=== PATIENT | female | born 1940 | race Caucasian/White ===

== ENCOUNTER 2020-03-07 11:24 | Outpatient (REF) | payer MEDICARE, SELFPAY ==
[2020-03-07 14:37] LABS: Alanine Aminotransferase 21 U/L (0-31); Albumin Level 4.3 g/dL (3.5-5.0); Alkaline Phosphatase 89 U/L (39-117); Anion Gap 14 (12-20); Aspartate Amino Transferase 23 U/L (5-31); Bilirubin Total 0.5 mg/dL (0.0-1.0); Blood Urea Nitrogen 19 mg/dL (9-16); Calcium 9.1 mg/dL (8.4-10.2); Carbon Dioxide 28 mmol/L (22-29); Chloride 105 mmol/L (96-108); Estimated Glomerular Filt Rate > 60; Glucose Random 91 mg/dL (60-115); Potassium 3.7 mmol/l (3.3-5.1); Sodium 143 mmol/L (135-145); Total Protein 6.8 g/dL (6.5-8.0)
== END 2020-03-07 11:25 | disposition home or self-care (01) ==
LOC: HO.HMGCLDS 11:24
PROVIDERS: PCP Internal Medicine; Visit Provider Internal Medicine
DX: E03.9 Hypothyroidism, unspecified (principal); I10 Essential (primary) hypertension; N32.81 Overactive bladder; R35.0 Frequency of micturition
CPT/HCPCS: 36415; 80053; 84443

== ENCOUNTER 2020-05-03 10:40 | Outpatient (REF) | payer MEDICARE, SELFPAY ==
--- NOTE | ~2020-05-03 | XR_ITS ---
EXAMINATION: XR HIP, RIGHT CLINICAL INFORMATION: OA right hip COMPARISON: CT abdomen and pelvis 03/29/2010 TECHNIQUE: Two views of the right hip. FINDINGS: Within the right ischio there is a 1.2 x 0.7 ovoid lytic lesion with a thin sharply defined peripheral sclerotic margin. The bones are otherwise normal. No fracture. Alignment is anatomic. Hip joint space is maintained. There is mild degenerative change of the pubic symphysis. There is a partially visualized right sacral nerve stimulator. Soft tissues are otherwise unremarkable. XR/XR hip RT min 2V IMPRESSION: There is an ovoid lytic lesion within the right ischium with a thin sclerotic margin. While this lesion has an overall relatively benign appearance, the lesion is new from the prior study and patient is having right hip pain, further evaluation with cross-sectional imaging is warranted.
== END 2020-05-03 10:41 | disposition home or self-care (01) ==
LOC: HO.XRAY 10:40
PROVIDERS: PCP Internal Medicine; Visit Provider Internal Medicine
DX: M16.11 Unilateral primary osteoarthritis, right hip (principal)
CPT/HCPCS: 73502

== ENCOUNTER → 2020-07-27 10:08 | Outpatient (REF) | payer MEDICARE, SELFPAY ==
--- NOTE | 2020-07-27 10:00 | CA_ITS ---
Transthoracic Echocardiogram Patient (Last, First, Middle): Laura Vaughn J Gender: Female Date of : 1940 Age: 79 Procedure Date: 07/27/2020 Procedure Type: Transthoracic Echocardiogram Location: OP Height: 149.86 cm Weight: 74.84 kg BSA: 1.70 m2 Heart Rate: bpm BP: 170 / 92 mmHg Bag Checker: ALEX Pritchard MD: Cleo Fierro MD Rig Hand: Ant Carlson MD Symptoms: HTN WITH CHF Study Quality: Fair ECG Rhythm: Sinus Conclusions: - 1. Normal LV systolic function with impaired relaxation filling pattern 2. Normal cardiac valvular Doppler 3. Normal RV systolic pressure 4. No pericardial effusion Findings Left Ventricle Normal left ventricular size, thickness, and systolic function. The visually estimated ejection fraction is between 60-65%. Spectral Doppler is indicative of an impaired relaxation filling pattern. E/E prime ratio is between 8 and 15 consistent with indeterminate filling pressures. Right Ventricle Normal right ventricular cavity size and systolic function. Atria The left atrium is likely dilated. There is lipomatous hypertrophy of the interatrial septum. There is no evidence of interatrial shunt. The right atrium is normal in size. Aortic Valve There is mild thickening of the aortic valve. There is no aortic valve stenosis. There is no aortic valve regurgitation. Mitral Valve Normal mitral valve structure and function. There is mild mitral annular calcification. There is trace mitral valve regurgitation. There is no mitral valve stenosis. Pulmonic Valve The pulmonic valve is likely normal. Tricuspid Valve Normal tricuspid valve structure. There is mild tricuspid valve regurgitation. The right ventricular systolic pressure is 32 mmHg. Normal right atrial pressure. There is no evidence of pulmonary hypertension. Great Vessels All visible segments of the aorta are normal in size. The pulmonary artery was not well visualized. Venous The inferior vena cava is normal in size and collapses greater than 50% with inspiration. Pericardium/Pleural There is no evidence of pericardial effusion. Measurements M-Mode Liner Measurements Normals - Women/Men AOV Cusps: 1.80 1.5-2.6 cm/m2 2D Linear Measurements IVSd: 0.90 0.6-0.9/0.6-1.0 cm LVIDd: 4.52 3.9-5.3/4.2-5.9 cm LVIDd Index: 2.66 2.4-3.2/2.2-3.1 cm/m2 LVIDs: 3.19 2.0-3.6 cm LVPWd: 1.00 0.7-1.1 cm Ao Root: 2.50 2.1-3.5 cm LA Diam: 3.60 2.7-3.8/3.0-4.0 cm LAIDs Index: 2.12 1.5-2.3 cm/m2 LV Mass: 178.26 67-162/88-224 g LV Mass Index: 104.86 43-95/49-115 g/m2 LVOT Diam: 1.80 3.0+(-)1.3 cm 2D Systolic Function EF 4C: 62.00 >55% EF 2C: 70.60 >55% EF BiP: 65.40 >55% Mitral Valve MV Pk E: 0.86 MV PK A: 0.88 MV Decel Time: 255.00 E/A: 1.00 E'Lateral: 7.40 E'Medial: 5.98 E/E' Med: 14.30 E/E' Lat: 11.60 PHT: 75.00 MVA PHT: 2.93 Decel [place]: 3.36 Aortic Valve AoV Pk Quintin: 1.43 AoV Mn Quintin: 1.01 AoV VTI: 0.39 AoV Pk Grad: 8.00 Aov Mn Grad: 5.00 DG Cont.VTI: 1.64 LVOT LVOT Pk Quintin: 0.99 LVOT Mn Quintin: 0.66 LVOT VTI: 0.26 LVOT Pk Grad: 4.00 LVOT Mn Grad: 2.00 LVOT Diam: 1.80 LVOT Area: 2.54 Diastolic Function MV Pk E: 0.86 MV Pk A: 0.88 E/A: 1.00 E'Medial: 5.98 E/E' Med: 14.30 E' Laterial: 7.40 E/E' Lat: 11.60 Tricuspid Valve TR Pk Quintin: 2.70 TR Pk Grad: 29.00 RA Press: 3.00 RVSP: 32.00 Great Vessels Aorta Ao Root-2D: 2.50 2.0-3.7 cm Ao Asc: 3.10 2.1-3.4 cm Ao Arch: 2.20 Pulmonary Valve PV Pk Quintin: 0.88 Peak PV Grad: 3.00 Updated in Other Vendor System with Status of Final Atn Carlson MD electronically signed on 07/29/2020 1:09:45 PM with status of Final
== END ==
LOC: HO.CARD 10:08
PROVIDERS: PCP Internal Medicine; Visit Provider Internal Medicine
DX: I10 Essential (primary) hypertension (principal)
CPT/HCPCS: 93306

== ENCOUNTER → 2020-08-15 09:48 | Outpatient (REF) | payer MEDICARE, SELFPAY ==
--- NOTE | ~2020-08-15 | NM_ITS ---
EXAMINATION: NM BONE SCAN OF THE WHOLE BODY CLINICAL INFORMATION: Lytic lesion right ischium. COMPARISON: No previous bone scan is available for comparison. Radiographs of the right hip dated 05/03/2020 are available for comparison. TECHNIQUE: Multiple gamma scintillation camera images of the whole body were performed 2.5 hours following the intravenous administration of 26.0 mCi Tc-99m MDP. FINDINGS: In the head, no significant abnormalities are present. In the thoracic cage and upper extremities, there is minimally increased activity in the sternoclavicular joints bilaterally, the sternomanubrial articulation, and the left acromioclavicular joint and also in several foci in both hands and wrists. There is mildly increased activity in the lateral subacromial regions of both humeral heads and in the glenohumeral articulation on the left. In the spine, there is mildly increased activity bilaterally in the posterior elements at L5-S1. In the pelvis, no abnormal metabolic activity seen in the right ischium where a lytic lesion is seen on the right hip x-ray 05/03/2020. In the lower extremities, no abnormal metabolic activity seen. No other definite bony abnormalities are noted. The urinary bladder and faint visualization of both kidneys are noted. NM/NM bone scan whole body IMPRESSION: No abnormal metabolic activity is seen in the right ischium where a lytic lesion was seen on x-ray. Mild degenerative changes bilateral sternoclavicular joints, left AC joint and sternomanubrial joint. Also visualized are degenerative changes bilateral SI joints.
== END ==
LOC: HO.NUCMED 09:48
PROVIDERS: Visit Provider Internal Medicine
DX: R93.89 Abnormal findings on diagnostic imaging of other specified body structures (principal)
CPT/HCPCS: 78306; A9503

== ENCOUNTER 2020-08-23 10:59 | Outpatient (REF) | payer MEDICARE, SELFPAY ==
[2020-08-23 12:50] LABS: MANUAL DIFF FLAG NO
[2020-08-23 12:58] LABS: Basophils Percent Auto 0.3 % (0-2); Eosinophils Absolute Auto 0.1 X10*3/uL (0.0-0.4); Eosinophils Percent Auto 1.6 % (0-4); Hematocrit 38.4 % (37-47); Hemoglobin 12.7 g/dl (12.0-16.0); Imm Gran Abs Auto 0.01 X10*3/uL (0.00-0.03); Imm Gran Pct Auto 0.2 % (0.0-0.4); Lymphocytes Absolute Auto 2.4 X10*3/uL (1.2-4.9); Lymphocytes Percent Auto 42.3 % (20-40); Mean Corpuscular HGB Conc 33.1 g/dl (31.0-35.0); Mean Corpuscular Hemoglobin 31.8 pg (27.0-33.0); Mean Corpuscular Volume 96.2 fL (80-98); Mean Platelet Volume 9.5 fL (9.4-12.3); Monocytes Absolute Auto 0.5 X10*3/uL (0.1-1.2); Monocytes Percent Auto 7.9 % (2-11); Neutrophils Absolute Auto 2.7 X10*3/uL (2.0-8.3); Neutrophils Percent Auto 47.7 % (45-73); Platelet Count 231 X10*3/uL (160-400); Red Blood Count 3.99 X10*6/uL (4.20-5.50); Red Cell Distribution Width 12.4 % (11.0-16.0); White Blood Count 5.7 X10*3/uL (4.8-10.8)
[2020-08-23 13:27] LABS: Alanine Aminotransferase 15 U/L (0-31); Alkaline Phosphatase 90 U/L (39-117); Anion Gap 14 (12-20); Aspartate Amino Transferase 19 U/L (5-31); Bilirubin Total 0.5 mg/dL (0.0-1.0); Blood Urea Nitrogen 15 mg/dL (9-16); Calcium 9.3 mg/dL (8.4-10.2); Carbon Dioxide 26 mmol/L (22-29); Chloride 106 mmol/L (96-108); Cholesterol 142 mg/dL; Estimated Glomerular Filt Rate > 60; Glucose Random 110 mg/dL (60-115); HDL Cholesterol 46 mg/dL; LDL Cholesterol Calculated 60 mg/dl; Potassium 4.2 mmol/L (3.3-5.1); Sodium 142 mmol/L (135-145); Total Protein 6.5 g/dL (6.5-8.0); Triglycerides 181 mg/dL
== END 2020-08-23 11:00 | disposition home or self-care (01) ==
LOC: HO.LAB 10:59
PROVIDERS: PCP Internal Medicine; Visit Provider Internal Medicine
DX: E03.9 Hypothyroidism, unspecified (principal); E78.00 Pure hypercholesterolemia, unspecified; I10 Essential (primary) hypertension
CPT/HCPCS: 36415; 80053; 80061; 84443; 85025

== ENCOUNTER 2020-10-17 14:57 | Emergency (ER) | payer MEDICARE, SELFPAY ==
--- NOTE | ~2020-10-17 | XR_ITS ---
EXAMINATION: XR CHEST CLINICAL INFORMATION: Palpitations COMPARISON: None TECHNIQUE: AP portable view of the chest was obtained. FINDINGS: No significant abnormality is noted involving the heart, lungs, mediastinum, bony thorax or soft tissues. XR/XR chest 1V IMPRESSION: No acute disease.
[2020-10-17 15:24] VITALS: BP 180/73; BP 182/66; PULSE 76; PULSE 78; RESP 18; O2SAT 99; BMI 35.6
--- NOTE | 2020-10-17 15:25 | ECG_ITS ---
Test Reason : PALPITATION Blood Pressure : / mmHG Vent. Rate : 077 BPM Atrial Rate : 077 BPM P-R Int : 172 ms QRS Dur : 086 ms QT Int : 384 ms P-R-T Axes : 031 -08 006 degrees QTc Int : 434 ms Normal sinus rhythm Minimal voltage criteria for LVH, may be normal variant Borderline ECG When compared with ECG of 15-MAY-2009 12:41, Heart rate has increased Referred By: Sophia Liz Electronically Signed By:DEREK GAN
--- NOTE | 2020-10-17 15:27 | ED.CHESTPAIN ---
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 Reports initially starting to subside then recurred, improving at present. Reports associated generalized fatigue/weakness. Denies CP/SOB, fever, cough/recent illness, abdominal pain, nausea/vomiting, lightheadedness/dizziness, numbness, tingling Related Data Allergies Allergy/AdvReac Type Severity Reaction Status Date / Time wheat [WHEAT] Allergy Intermediate IBS Unverified 11/03/19 16:17 SYMPTOMS lactose [Lactose] Allergy Mild DIARRHEA/CR Unverified 11/03/19 16:17 AMPS milk, wheat Allergy Unknown Uncoded 07/16/18 00:00 Review of Systems Review of Systems: Constitutional: No Fever, No Chills, No Fatigue, No Malaise ENT/Mouth: No Hearing loss, No Ear Pain, No Nasal Congestion, No sore throat, No Rhinorrhea Eyes: No Eye Pain, No Swelling, No Vision Changes Cardiovascular: No Chest Pain, No SOB, No Dyspnea on Exertion, No Orthopnea, No Edema, + Palpitations Respiratory: No Cough, No Sputum, No Dyspnea Gastrointestinal: No Nausea, No Vomiting, No Diarrhea, No Abdominal pain Genitourinary: No Dysuria, No Urinary Frequency, No Hematuria, No Flank Pain Musculoskeletal: No joint pain, No Myalgias, No Joint Swelling Skin: No Skin Lesions, No rash Neuro: + Weakness, No Numbness, No Paresthesias, No Loss of Consciousness, No Dizziness, No Headache Yes all other systems are reviewed and are negative [facility] Past Medical History Attestation statement: The following information was validated with the patient. Medical History (Updated 10/17/20 @ 20:03 by ERLINDA Martinez) Hypertension Social History Social History Advance Directives: No Advance Directives Information Provided: Yes Physical Exam Vital Signs: Vital Signs: Last Vital Signs Temp 97.9 F 10/17/20 18:00 Pulse 66 10/17/20 18:00 Resp 13 10/17/20 18:00 BP 130/73 10/17/20 18:00 Pulse Ox 98 10/17/20 18:00 Body Mass Index 35.6 Const: General: cooperative and no acute distress Orientation/consciousness: patient oriented x3 Limitations: no limitations HENMT: Head: Yes normal to inspection Ears: hearing grossly normal bilaterally General nose exam: Normal external nose present Face and sinus: Yes normal facial exam Eyes: General: appearance normal, both eyes and all related structures EOM: EOMs intact bilaterally Neck: Neck: Yes normal visual inspection Resp: Effort & Inspection: normal respiratory effort Auscultation: clear to auscultation bilaterally, no rales, no rhonchi and no wheezes Cardio: Rate: regular rate Heart sounds: S1 normal heart sound present and S2 normal heart sound present GI: Inspection: Yes normal to inspection Palpation (GI): Soft to palpation, nontender, no guarding and not rigid Skin: Rashes: no rashes Wounds: no wounds Neuro: General: patient oriented x3 Gait exam (Neuro): Normal gait present Extrem: General: Yes normal to inspection, Yes no pedal edema and Yes no calf tenderness Course Course Course Narrative: -no leukocytosis, initial troponin 17.3 > will obtain 3 hour repeat. Patient does not have active chest pain XR chest 1V IMPRESSION: No acute disease. -1999--repeat troponin 32.3, no 50% rise, OK unlikely. Results discussed with patient and family at bedside. 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 Reports associated generalized fatigue/weakness. On exam VSS, in the ED, lungs CTA, abdomen soft/nontender, no pedal edema/calf tenderness. Concern for arrhythmia vs palpitation/metabolic abnormalities. Rule out ACS. Lower concern for PE as symptoms waxing/waning. Plan: EKG, labs, CXR, IVF, reassess Medical Records Data Attestation: I reviewed the patient's medical records. Lab Data Attestation: I reviewed the patient's lab results. Result diagrams: 10/17/20 15:59 10/17/20 15:59 Labs: Lab Results 09/03/0810/17/20 10/17/20 Range/Units 15:59 15:59 15:59 WBC 7.4 (4.8-10.8) X10*3/uL RBC 4.49 (4.20-5.50) X10*6/uL Hgb 14.3 (12.0-16.0) g/dl Hct 42.9 (37-47) % MCV 95.5 (80-98) fL MCH 31.8 (27.0-33.0) pg MCHC 33.3 (31.0-35.0) g/dl RDW 12.3 (11.0-16.0) % Plt Count 182 (160-400) X10*3/uL MPV 9.3 L (9.4-12.3) fL Immature Gran % (Auto) 0.1 (0.0-0.4) % Neut % (Auto) 72.6 (45-73) % Lymph % (Auto) 21.2 (20-40) % Faulkner % (Auto) 4.9 (2-11) % Eos % (Auto) 0.8 (0-4) % Baso % (Auto) 0.4 (0-2) % Lymph # (Auto) 1.6 (1.2-4.9) X10*3/uL Faulkner # (Auto) 0.4 (0.1-1.2) X10*3/uL Eos # (Auto) 0.1 (0.0-0.4) X10*3/uL Baso # (Auto) 0.0 (0.0-0.2) X10*3/uL Abs Immat Gran (auto) 0.01 (0.00-0.03) X10*3/uL Absolute Neuts (auto) 5.4 (2.0-8.3) X10*3/uL Absolute Nucleated RBC 0.000 (0.0-0.012) X10*3/uL Nucleated RBC % (auto) 0.0 (0.0-0.2) /100WBC Sodium 142 (135-145) mmol/L Potassium 3.8 (3.3-5.1) mmol/L Chloride 107 (96-108) mmol/L Carbon Dioxide 25 (22-29) mmol/L Anion Gap 14 (12-20) BUN 12 (9-16) mg/dL Creatinine 0.68 (0.5-1.4) mg/dL Estim Creat Clear Calc 60.3 Estimated GFR > 60 Random Glucose 95 (60-115) mg/dL Calcium 9.8 (8.4-10.2) mg/dL Magnesium 2.1 (1.6-2.6) mg/dL Total Bilirubin 0.8 (0.0-1.0) mg/dL Direct Bilirubin 0.3 (0.0-0.5) mg/dL AST 23 (5-31) U/L ALT 22 (0-31) U/L Alkaline Phosphatase 97 (39-117) U/L Troponin I High Sens 17.3 H* (<3.5-17.0) ng/L B-Natriuretic Peptide 90 (<100) pg/mL Total Protein 7.3 (6.5-8.0) g/dL Albumin 4.6 (3.5-5.0) g/dL TSH 3.24 (0.32-4.0) uIU/mL 10/17/20 Range/Units 19:02 WBC (4.8-10.8) X10*3/uL RBC (4.20-5.50) X10*6/uL Hgb (12.0-16.0) g/dl Hct (37-47) % MCV (80-98) fL MCH (27.0-33.0) pg MCHC (31.0-35.0) g/dl RDW (11.0-16.0) % Plt Count (160-400) X10*3/uL MPV (9.4-12.3) fL Immature Gran % (Auto) (0.0-0.4) % Neut % (Auto) (45-73) % Lymph % (Auto) (20-40) % Faulkner % (Auto) (2-11) % Eos % (Auto) (0-4) % Baso % (Auto) (0-2) % Lymph # (Auto) (1.2-4.9) X10*3/uL Faulkner # (Auto) (0.1-1.2) X10*3/uL Eos # (Auto) (0.0-0.4) X10*3/uL Baso # (Auto) (0.0-0.2) X10*3/uL Abs Immat Gran (auto) (0.00-0.03) X10*3/uL Absolute Neuts (auto) (2.0-8.3) X10*3/uL Absolute Nucleated RBC (0.0-0.012) X10*3/uL Nucleated RBC % (auto) (0.0-0.2) /100WBC Sodium (135-145) mmol/L Potassium (3.3-5.1) mmol/L Chloride (96-108) mmol/L Carbon Dioxide (22-29) mmol/L Anion Gap (12-20) BUN (9-16) mg/dL Creatinine (0.5-1.4) mg/dL Estim Creat Clear Calc Estimated GFR Random Glucose (60-115) mg/dL Calcium (8.4-10.2) mg/dL Magnesium (1.6-2.6) mg/dL Total Bilirubin (0.0-1.0) mg/dL Direct Bilirubin (0.0-0.5) mg/dL AST (5-31) U/L ALT (0-31) U/L Alkaline Phosphatase (39-117) U/L Troponin I High Sens 32.3 H* D (<3.5-17.0) ng/L B-Natriuretic Peptide (<100) pg/mL Total Protein (6.5-8.0) g/dL Albumin (3.5-5.0) g/dL TSH (0.32-4.0) uIU/mL ECG Data ECG #1: Attestation: I personally reviewed and interpreted this ECG as follows: ECG interpretation date: 10/17/20 ECG interpretation time: 15:36 Interpretation: EKG normal sinus rhythm with a rate of 77. Inverted T-waves in leads 3 and V1. No STEMI Discharge Plan Discharge Clinical Impression: Palpitations Patient Disposition: Home, Self-Care Instructions: Heart Palpitations (ED) Additional Instructions: Your blood work was reassuring today in the ED Your x-ray was unremarkable It is important for you to follow-up with your primary care doctor as well as cardiology Call to make an appointment If her symptoms persist or worsen, become unbearable, have chest pain, shortness of breath, fever or chills please return to the ED Referrals: Chance Harden MD [Physician] - 3 days Physician,Unknown [Primary Care Provider] - 2 days
[2020-10-17 15:41] VITALS: BP 202/70; PULSE 71
[2020-10-17 15:44] VITALS: BP 173/77; PULSE 78
[2020-10-17 15:46] VITALS: BP 164/86; PULSE 77
[2020-10-17 16:07] LABS: Basophils Percent Auto 0.4 % (0-2); Eosinophils Absolute Auto 0.1 X10*3/uL (0.0-0.4); Eosinophils Percent Auto 0.8 % (0-4); Hematocrit 42.9 % (37-47); Hemoglobin 14.3 g/dl (12.0-16.0); Imm Gran Abs Auto 0.01 X10*3/uL (0.00-0.03); Imm Gran Pct Auto 0.1 % (0.0-0.4); Lymphocytes Absolute Auto 1.6 X10*3/uL (1.2-4.9); Lymphocytes Percent Auto 21.2 % (20-40); MANUAL DIFF FLAG NO; Mean Corpuscular HGB Conc 33.3 g/dl (31.0-35.0); Mean Corpuscular Hemoglobin 31.8 pg (27.0-33.0); Mean Corpuscular Volume 95.5 fL (80-98); Mean Platelet Volume 9.3 fL (9.4-12.3); Monocytes Absolute Auto 0.4 X10*3/uL (0.1-1.2); Monocytes Percent Auto 4.9 % (2-11); Neutrophils Absolute Auto 5.4 X10*3/uL (2.0-8.3); Neutrophils Percent Auto 72.6 % (45-73); Platelet Count 182 X10*3/uL (160-400); Red Blood Count 4.49 X10*6/uL (4.20-5.50); Red Cell Distribution Width 12.3 % (11.0-16.0); White Blood Count 7.4 X10*3/uL (4.8-10.8)
[2020-10-17 16:22] VITALS: BP 147/68; PULSE 72; RESP 16; TEMP 36.4; O2SAT 98
[2020-10-17 16:27] LABS: Alanine Aminotransferase 22 U/L (0-31); Albumin Level 4.6 g/dL (3.5-5.0); Alkaline Phosphatase 97 U/L (39-117); Anion Gap 14 (12-20); Aspartate Amino Transferase 23 U/L (5-31); Bilirubin Direct 0.3 mg/dL (0.0-0.5); Bilirubin Total 0.8 mg/dL (0.0-1.0); Blood Urea Nitrogen 12 mg/dL (9-16); Calcium 9.8 mg/dL (8.4-10.2); Carbon Dioxide 25 mmol/L (22-29); Chloride 107 mmol/L (96-108); Creatinine Clr Calc Pharmacy 60.3; Estimated Glomerular Filt Rate > 60; Glucose Random 95 mg/dL (60-115); Magnesium 2.1 mg/dL (1.6-2.6); Potassium 3.8 mmol/L (3.3-5.1); Sodium 142 mmol/L (135-145); Total Protein 7.3 g/dL (6.5-8.0)
[2020-10-17 16:35] LABS: B Type Natriuretic Peptide 90 pg/mL (<100); Troponin-I High Sensitivity 17.3 ng/L (<3.5-17.0)
[2020-10-17] MEDS: Aspirin Enteric Coated 325 MG TABLET.DR PO (16:46)
[2020-10-17 16:47] LABS: TSH reflex Free T4 3.24 uIU/mL (0.32-4.0)
[2020-10-17 18:00] VITALS: BP 130/73; PULSE 66; RESP 13; TEMP 36.6; O2SAT 98
[2020-10-17 19:34] LABS: Troponin-I High Sensitivity 32.3 ng/L (<3.5-17.0)
--- NOTE | 2020-10-17 20:25 | PC.NURSE ---
Reviewed discharge instructions given and reviewed with pt and daughter.
== END 2020-10-17 20:28 | disposition home or self-care (01) ==
PROVIDERS: Physician Assistant; Emergency Provider Emergency Medicine Emergency Medical Services
DX: R00.2 Palpitations (principal); I10 Essential (primary) hypertension
CPT/HCPCS: 36415; 71045; 80048; 80076; 83735; 83880; 84443; 84484; 85025; 93005; 99284

== ENCOUNTER → 2020-11-06 09:53 | Outpatient (BNVA) | payer MEDICARE, SELFPAY | PROVIDERS: PCP Internal Medicine | DX: N39.41 Urge incontinence (principal) | CPT/HCPCS: 51798; 99212 ==

== ENCOUNTER → 2020-12-07 09:01 | Outpatient (BNVA) | payer MEDICARE, SELFPAY | PROVIDERS: PCP Internal Medicine | DX: N39.41 Urge incontinence (principal); E78.00 Pure hypercholesterolemia, unspecified; I10 Essential (primary) hypertension; T78.1XXA Other adverse food reactions, not elsewhere classified, initial encounter; K58.9 Irritable bowel syndrome, unspecified; Z91.011 Allergy to milk products | CPT/HCPCS: Q3014 ==

== ENCOUNTER 2020-12-21 09:18 | Outpatient (REF) | payer MEDICARE, SELFPAY ==
[2020-12-21 10:17] LABS: Alanine Aminotransferase 17 U/L (0-31); Albumin Level 4.1 g/dL (3.5-5.0); Alkaline Phosphatase 80 U/L (39-117); Anion Gap 9 (12-20); Aspartate Amino Transferase 20 U/L (5-31); Bilirubin Total 0.8 mg/dL (0.0-1.0); Blood Urea Nitrogen 15 mg/dL (9-16); Calcium 9.1 mg/dL (8.4-10.2); Carbon Dioxide 29 mmol/L (22-29); Chloride 108 mmol/L (96-108); Estimated Glomerular Filt Rate > 60; Glucose Random 92 mg/dL (60-115); Potassium 4.1 mmol/L (3.3-5.1); Sodium 142 mmol/L (135-145); Total Protein 6.5 g/dL (6.5-8.0)
== END 2020-12-21 09:19 | disposition home or self-care (01) ==
LOC: HO.LAB 09:18
PROVIDERS: PCP Internal Medicine; Visit Provider Internal Medicine
DX: E03.9 Hypothyroidism, unspecified (principal); E78.2 Mixed hyperlipidemia; I10 Essential (primary) hypertension; R60.0 Localized edema
CPT/HCPCS: 36415; 80053

== ENCOUNTER 2020-12-24 08:08 | Outpatient (REF) | payer MEDICARE, SELFPAY ==
--- NOTE | ~2020-12-24 | MM_ITS ---
EXAMINATION: MM SCREENING DIGITAL BREAST TOMOSYNTHESIS, BILATERAL CLINICAL INFORMATION: Screening. Asymptomatic. The lifetime risk of breast cancer based on the Tyrer-Cuzick Model is 2%. COMPARISON: Mammography: 11/03/2019, 11/29/2018, 03/19/2017 TECHNIQUE: Digital breast tomosynthesis is performed in both the craniocaudal and mediolateral oblique views along with computer-aided detection (CAD). Synthesized 2D images are generated from the tomosynthesis. FINDINGS: There are scattered areas of fibroglandular density (ACR BI-RADS breast composition Category b). There are no significant masses, abnormal calcifications, or other abnormalities. MM/MM tomosynthesis screening BI IMPRESSION: No mammographic evidence of malignancy. ASSESSMENT: BI-RADS 1: Negative RECOMMENDATION: Routine annual mammography screening. This patient's information was entered into a reminder system with a target due date for their next mammogram.
== END 2020-12-24 08:09 | disposition home or self-care (01) ==
LOC: HO.MAMMO 08:08
PROVIDERS: Visit Provider Internal Medicine
DX: Z12.31 Encounter for screening mammogram for malignant neoplasm of breast (principal)
CPT/HCPCS: 77063; 77067

== ENCOUNTER → 2021-01-04 09:07 | Outpatient (BNVA) | payer MEDICARE, SELFPAY | PROVIDERS: PCP Internal Medicine; Visit Provider Internal Medicine Cardiovascular Disease | DX: I10 Essential (primary) hypertension (principal); R00.2 Palpitations | CPT/HCPCS: 99202 ==

== ENCOUNTER → 2021-01-08 13:43 | Outpatient (REF) | payer MEDICARE, SELFPAY ==
--- NOTE | 2021-01-08 13:47 | HM_ITS ---
Total monitoring time 12 days and 6 hours. Underlying rhythm is sinus. Minimum heart rate as 41/Min. Maximum 102/Min. Average 56/Min. No atrial fibrillation or flutter or pauses. Rare supraventricular ectopy with minimal burden; several brief runs longest 25 beats. Occasional ventricular ectopy with burden of 0.3%. 2 morphologies and 30 couplets. No clear patient symptoms documented. MTDD
== END ==
LOC: HO.CARD 13:43
PROVIDERS: PCP Internal Medicine; Visit Provider Internal Medicine Cardiovascular Disease
DX: R00.2 Palpitations (principal)
CPT/HCPCS: 93246

== ENCOUNTER → 2021-01-14 09:32 | Outpatient (REF) | payer MEDICARE, SELFPAY ==
--- NOTE | 2021-01-14 09:37 | CA_ITS ---
Acquisition Time: 2021-01-14 10:43:37 Total Exercise Time: 00:02:39 Test Indications: HTN Medications: METOPROLOL HCTZ Protocol: KIAN Max HR: 122 BPM 87% of Pred: 140 BPM Max BP: 130/072 mmHG Max Work Load: 4.6 METS Exercise stress test with exercise 2 min 39 sec of Kian protocol and request to stop due to leg fatigue, achieving 74% MPHR, without anginal symptoms, with PACs, with normotensive response to exercise, with nondiagnostic EKG for ischemia due to suboptimal exercise time and heart rate. Test reviewed with Dr Combs. Will order a pharmacological nuclear stress test for further evaluation. Referred By: Ant Carlson Overread By: KELVIN YOUNGBLOOD
== END ==
LOC: HO.CARD 09:32
PROVIDERS: Visit Provider Internal Medicine Cardiovascular Disease
DX: I10 Essential (primary) hypertension (principal); I49.1 Atrial premature depolarization; Z79.899 Other long term (current) drug therapy
CPT/HCPCS: 93017

== ENCOUNTER → 2021-01-21 09:26 | Outpatient (REF) | payer MEDICARE, SELFPAY ==
--- NOTE | ~2021-01-21 | NM_ITS ---
Lexiscan Myocardial perfusion study Indication: Abnormal exercise stress test Technique: The patient was brought in for a Lexiscan perfusion study on 01/21/2021 and was injected 0.4 mg of Lexiscan intravenously. Within a minute of this injection 25 mCi of sestamibi was given intravenously. Images were obtained using the SPECT gamma camera interlaced with the gating device. Images were obtained in supine position. Resting perfusion study was performed on 01/23/2021. Patient was administered 25 mCi of sestamibi intravenously at rest. Images were then obtained in supine position. Total DLP 94mGy-cm. Images were processed with the software and compared side to side in short axis, horizontal long axis and vertical long axis views. Findings: Raw acquisition was reviewed. The stress perfusion study showed slightly diminished tracer uptake in the distal part of lateral wall. There is also slightly diminished tracer uptake in the basal aspect of inferior septum and inferolateral wall. Adjacent inferior wall, that seems to be some bowel uptake. With CT attenuation correction overall, there is improvement in the basal part of inferior septum and inferolateral wall as well as distal part of lateral wall. The gated study shows normal LV systolic function with calculated LVEF of 73%. LV cavity is normal in size. The gated study shows normal wall thickening and contraction of segments. Resting study shows slightly diminished tracer uptake in the distal part of lateral wall but otherwise unremarkable CT attenuation correction without any major changes. Gating at rest reveals normal wall motion with ejection fraction at 70%. The findings are consistent with no definite reversible or fixed perfusion abnormality. NM/NM rosaura perf SPECT rest & str Impression: 1. Myocardial perfusion imaging study shows likely normal myocardial perfusion. 2. Gated LVEF is 73% during stress and 70% during rest. 3. Transient ischemic dilatation not present. EKG component of the test reported separately.
--- NOTE | 2021-01-21 09:31 | CA_ITS ---
Acquisition Time: 2021-01-21 09:36:24 Total Exercise Time: 00:02:00 Test Indications: SOB Medications: SEE CHART Protocol: LEXISCAN Max HR: 098 BPM 70% of Pred: 140 BPM Max BP: 142/062 mmHG Max Work Load: 1.0 METS Pharmacological stress test with Lexiscan injection, while sitting and kicking her legs, without anginal symptoms, without arrythmia, with normotensive response to injection, with nondiagnostic EKG for ischemia. Nuclear images pending. Test reviewed with Dr Harden. Referred By: Almaz Preciado Overread By: ALMAZ PRECIADO
== END ==
LOC: HO.CARD 09:26
PROVIDERS: Visit Provider Nurse Practitioner Family
DX: I10 Essential (primary) hypertension (principal); I49.1 Atrial premature depolarization; R06.02 Shortness of breath; R94.39 Abnormal result of other cardiovascular function study
CPT/HCPCS: 78452; 93017; A9500; J0280; J2785

== ENCOUNTER → 2021-03-08 09:23 | Outpatient (BNVA) | payer MEDICARE, SELFPAY | PROVIDERS: PCP Internal Medicine | DX: N39.41 Urge incontinence (principal) | CPT/HCPCS: 99212 ==

== ENCOUNTER 2021-03-20 08:00 | Outpatient (REF) | payer MEDICARE, SELFPAY ==
[2021-03-20 09:03] LABS: Alanine Aminotransferase 26 U/L (0-31); Alkaline Phosphatase 89 U/L (39-117); Anion Gap 10 (12-20); Aspartate Amino Transferase 24 U/L (5-31); Bilirubin Total 0.6 mg/dL (0.0-1.0); Blood Urea Nitrogen 19 mg/dL (9-16); Calcium 9.4 mg/dL (8.4-10.2); Carbon Dioxide 28 mmol/L (22-29); Chloride 107 mmol/L (96-108); Estimated Glomerular Filt Rate > 60; Glucose Random 101 mg/dL (60-115); Potassium 4.3 mmol/L (3.3-5.1); Sodium 141 mmol/L (135-145); Total Protein 6.5 g/dL (6.5-8.0)
[2021-03-20 09:24] LABS: Thyroid Stimulating Hormone 3.39 uIU/mL (0.32-4.0)
[2021-03-20 09:26] LABS: Vitamin B12 452 pg/mL (200-900)
== END 2021-03-20 08:01 | disposition home or self-care (01) ==
LOC: HO.LAB 08:00
PROVIDERS: PCP Internal Medicine; Visit Provider Internal Medicine
DX: I10 Essential (primary) hypertension (principal); E03.8 Other specified hypothyroidism; F04 Amnestic disorder due to known physiological condition; R00.2 Palpitations
CPT/HCPCS: 36415; 80053; 82607; 84443

== ENCOUNTER 2021-04-29 09:50 | Day surgery (SDC) | payer MEDICARE, SELFPAY ==
[2021-04-23 15:55] VITALS: BMI 31.7
--- NOTE | 2021-04-26 08:27 | HO.ANESPROP2 ---
HPI - Anesthesia Eval Consult details Narrative: 80yo F for Colonoscopy [facility] Active Problems Active Problems: All Active Problems (Updated 04/23/21 @ 15:55 by Dawna Arias RN) PAC (premature atrial contraction) (Acute) Hypertension (Acute) Urgency incontinence (Acute) Past Medical History Medical History (Updated 04/23/21 @ 15:55 by Dawna Arias RN) Dysphagia Esophageal stricture GERD (gastroesophageal reflux disease) High cholesterol History of palpitations Hypertension IBS (irritable bowel syndrome) Urgency incontinence Urinary incontinence Family History Family History Father CAD (coronary artery disease) Mother CAD (coronary artery disease) Surgical History Surgical History (Updated 04/23/21 @ 15:06 by Dawna Arias RN) History of esophagogastroduodenoscopy (EGD) History of salpingo-oophorectomy History of surgery Hx of cerebral aneurysm repair Hx of colonoscopy Hx of hysterectomy Social History Social History Are you a primary health care attorney to a significant other at home: No Do you presently have visiting nurse or other home services: No Alcohol intake: never Patient Tobacco Use Status: Never used Tobacco Use of substances other than those prescribed or required for medical reasons: No Have you been hit, kicked, punched, or otherwise hurt by someone within the past year? If so, by whom?: No Are you DNR?: No Advance Directives: No Advance Directives Information Provided: No Advance Directives on File: No Recently lost weight without trying: No Eating poorly because of decreased appetite: No Nutrition Risks: No Nutritional Risk Patient : No Meds Allergies Allergy/AdvReac Type Severity Reaction Status Date / Time wheat [WHEAT] Allergy Intermediate IBS Verified 04/29/21 10:25 SYMPTOMS lactose [Lactose] Allergy Mild DIARRHEA/CR Verified 04/29/21 10:25 AMPS Home Medications Medication Instructions Recorded Confirmed Last Taken Type famciclovir 250 mg tablet 250 mg PO BID 12/07/20 04/23/21 Unknown History levothyroxine 50 mcg capsule 50 mcg PO DAILY 12/07/20 04/23/21 04/29/21 09:00 History rosuvastatin 20 mg tablet 20 mg PO DAILY 12/07/20 04/23/21 Unknown History losartan 100 1 tab PO DAILY 01/04/21 04/23/21 Unknown History mg-hydrochlorothiazide 25 mg tablet metoprolol succinate 100 mg 100 mg PO DAILY 01/04/21 04/23/21 04/29/21 09:00 History tablet,extended release 24 hr omeprazole 20 mg capsule,delayed 40 mg PO DAILY cap 01/04/21 04/23/21 04/29/21 09:00 History release folic acid 1 mg tablet 1 mg PO DAILY 03/08/21 04/23/21 Unknown History methotrexate sodium 2.5 mg tablet 7.5 mg PO QWEEK 03/08/21 04/23/21 Unknown History prednisolone acetate 1 % eye 0 drp OPHTHALMIC (EYE) 03/08/21 Unknown History drops,suspension Exam Exam Date and Time: April 26, 2021 0827 Height,Weight and Vital Signs: Height 4 ft 11.5 in Weight 72.575 kg Pertinent Lab Results Pertinent Lab Results: Laboratory Tests 10/17/20 03/20/21 15:59 08:15 WBC 7.4 Hgb 14.3 Hct 42.9 Plt Count 182 Sodium 141 Potassium 4.3 Chloride 107 Carbon Dioxide 28 BUN 19 H Creatinine 0.73 Narrative Narrative: NM rosaura perf SPECT rest & str Impression: ? 1.? Myocardial perfusion imaging study shows likely normal myocardial perfusion. 2.? Gated LVEF is 73% during stress and 70% during rest. 3. Transient ischemic dilatation not present. ? EKG component of the test reported separately. (Nondiagnostic) ECHO 07/2020 Conclusions: - 1. Normal LV systolic function with impaired relaxation filling pattern? 2. Normal cardiac valvular Doppler ? 3. Normal RV systolic pressure ? 4. No pericardial effusion ? ? EKG 10/2020 Vent. Rate : 077 BPM ? ? Atrial Rate : 077 BPM ?? P-R Int : 172 ms? QRS Dur : 086 ms ? ? QT Int : 384 ms ? ? ? P-R-T Axes : 031 -08 006 degrees ?? QTc Int : 434 ms ? Normal sinus rhythm Minimal voltage criteria for LVH, may be normal variant Borderline ECG When compared with ECG of 15-MAY-2009 12:41, Heart rate has increased Assessment and Plan Assessment Anesthesia Assessment: Chart Reviewed
[2021-04-29 10:55] VITALS: BP 131/58; PULSE 55; RESP 16; TEMP 36.7; O2SAT 98
[2021-04-29] MEDS: Sodium Phosphate,Mono-Dibasic 133 ML ENEMA PR (10:57)
[2021-04-29] MEDS: Lactated Ringers 1,000 ML 100 ML IVCONT (11:21)
[2021-04-29 12:25] VITALS: BP 113/52; PULSE 60; RESP 14; TEMP 36.3; O2SAT 97
--- NOTE | 2021-04-29 12:34 | PM.OP ---
Brief Operative Note Date of Service: 04/29/21 Pre-op diagnosis: Change in bowels Post-op diagnosis: other (R/O microscopic colitis, Diverticulosis) Procedure: Colonoscopy to the cecum with biopsies Surgeon: José Miguel Upton Anesthesia: MAC Was an Advertising Operations Coordinator used for this Procedure?: No Estimated blood loss (mL): 2.0 Pathology: other (A. Ascending colon B. Descenidng colon) Condition: stable Disposition: PACU
[2021-04-29 12:40] VITALS: BP 112/58; PULSE 54; RESP 16; TEMP 36.3; O2SAT 99
--- NOTE | 2021-04-29 23:47 | OP_ITS ---
SURGEON: José Miguel Upton MD INDICATIONS: The patient presents for evaluation of change in bowel habits with associated diarrhea. Full consent was obtained from her for this, including risks of bleeding and perforation. PREOPERATIVE DIAGNOSIS: Change in bowel habits and diarrhea. POSTOPERATIVE DIAGNOSIS: PROCEDURE PERFORMED: Colonoscopy to the cecum with biopsies. ESTIMATED BLOOD LOSS: COMPLICATIONS: ANESTHESIA: Preop medication used, monitored anesthesia care. ASSISTANTS: SPECIMENS: POSTOPERATIVE DIAGNOSES: Change in bowel habits and diarrhea, rule out microscopic colitis, diverticulosis, internal hemorrhoids. DESCRIPTION OF PROCEDURE: The patient was placed in the left lateral decubitus position. The digital rectal exam revealed some slightly diminished sphincter tone, but otherwise no abnormalities. The Olympus video pediatric colonoscope was entered into the rectum and advanced easily to the cecum. Once in the cecum, I did identify normal-appearing cecal pouch with appendiceal orifice and a normal-appearing ileocecal valve. The entire cecum and ileocecal valve appeared normal. There was transillumination of light deep in the right lower quadrant. The scope was slowly withdrawn assessing all mucosal surfaces carefully. Preparation was excellent. I did not visualize any sign of polyps, colitis, nor angiodysplasia. There was a mild amount of sigmoid diverticulosis. Random biopsies were obtained in the ascending and descending colon. In the rectum, scope was retroflexed visualizing some internal hemorrhoids, but no other pathology. The rectal mucosa appeared normal. The scope was straightened and withdrawn from the patient. She tolerated the procedure well and was returned to the recovery area in stable condition. IMPRESSION: 1. Rule out microscopic colitis. 2. Diverticulosis. 3. Internal hemorrhoids. PLAN: The results of biopsy will be checked. I did instruct her to use some Imodium on a p.r.n. basis for the intermittent diarrhea to hopefully control that and any occasional incontinence that she has. She has been using some dicyclomine p.r.n. for abdominal cramping as well. I did advise her to continue that. If things are stable, I advised her to see me on a p.r.n. basis, but I did advise her to certainly let me know if things were too worsen. This has been discussed with her family. MD CHENG Mead/MOLLYL / [id number]
== END 2021-04-29 13:10 | disposition home or self-care (01) ==
PROVIDERS: PCP Internal Medicine; Visit Provider Internal Medicine
PROC: 0DJD8ZZ Inspection of Lower Intestinal Tract, Via Natural or Artificial Opening Endoscopic (ICD-10-PCS; CPT 45378; principal; 2021-04-29 11:10)
DX: R19.4 Change in bowel habit (principal); K58.0 Irritable bowel syndrome with diarrhea; R15.1 Fecal smearing; K57.30 Diverticulosis of large intestine without perforation or abscess without bleeding; K64.8 Other hemorrhoids; E78.00 Pure hypercholesterolemia, unspecified; I10 Essential (primary) hypertension; Z79.899 Other long term (current) drug therapy
CPT/HCPCS: 45380; 88305

== ENCOUNTER 2021-09-18 15:16 | Outpatient (REF) | payer MEDICARE, SELFPAY ==
[2021-09-18 17:02] LABS: Alanine Aminotransferase 22 U/L (0-31); Albumin Level 4.2 g/dL (3.5-5.0); Alkaline Phosphatase 76 U/L (39-117); Anion Gap 14 (12-20); Aspartate Amino Transferase 25 U/L (5-31); Bilirubin Total 0.8 mg/dL (0.0-1.0); Blood Urea Nitrogen 17 mg/dL (9-16); Calcium 9.5 mg/dL (8.4-10.2); Carbon Dioxide 28 mmol/L (22-29); Chloride 105 mmol/L (96-108); Cholesterol 147 mg/dL; Estimated Glomerular Filt Rate > 60; Glucose Random 103 mg/dL (60-115); HDL Cholesterol 42 mg/dL; LDL Cholesterol Calculated 85 mg/dl; Potassium 4.2 mmol/L (3.3-5.1); Sodium 143 mmol/L (135-145); Total Protein 6.5 g/dL (6.5-8.0); Triglycerides 104 mg/dL
[2021-09-18 17:23] LABS: Thyroid Stimulating Hormone 2.08 uIU/mL (0.32-4.0)
== END 2021-09-18 15:17 | disposition home or self-care (01) ==
LOC: HO.HMGCLDS 15:16
PROVIDERS: PCP Internal Medicine; Visit Provider Internal Medicine
DX: E03.8 Other specified hypothyroidism (principal); E78.00 Pure hypercholesterolemia, unspecified; I10 Essential (primary) hypertension
CPT/HCPCS: 36415; 80053; 80061; 84443

== ENCOUNTER 2022-01-21 11:30 | Outpatient (REF) | payer MEDICARE, SELFPAY ==
--- NOTE | ~2022-01-21 | MM_ITS ---
EXAMINATION: MM SCREENING DIGITAL BREAST TOMOSYNTHESIS, BILATERAL CLINICAL INFORMATION: Screening. Asymptomatic. The lifetime risk of breast cancer based on the Tyrer-Cuzick Model is 1%. COMPARISON: Mammography: 12/24/2020, 11/03/2019, 04/01/2018 TECHNIQUE: Digital breast tomosynthesis is performed in both the craniocaudal and mediolateral oblique views along with computer-aided detection (CAD). Synthesized 2D images are generated from the tomosynthesis. FINDINGS: There are scattered areas of fibroglandular density (ACR BI-RADS breast composition Category b). There are no significant masses, abnormal calcifications, or other abnormalities. Parenchymal pattern is similar to prior studies. There is no developing density or architectural abnormality. The axilla and skin contours are unremarkable. No significant changes. MM/MM tomosynthesis screening BI IMPRESSION: No mammographic evidence of malignancy. ASSESSMENT: BI-RADS 1: Negative RECOMMENDATION: Routine annual mammography screening. This patient's information was entered into a reminder system with a target due date for their next mammogram.
== END 2022-01-21 11:31 | disposition home or self-care (01) ==
LOC: HO.MAMMO 11:30
PROVIDERS: PCP Internal Medicine; Visit Provider Internal Medicine
DX: Z12.31 Encounter for screening mammogram for malignant neoplasm of breast (principal)
CPT/HCPCS: 77063; 77067

== ENCOUNTER 2022-03-18 07:47 | Outpatient (REF) | payer MEDICARE, SELFPAY ==
[2022-03-18 11:39] LABS: MANUAL DIFF FLAG NO
[2022-03-18 11:58] LABS: Basophils Percent Auto 0.8 % (0-2); Eosinophils Absolute Auto 0.1 X10*3/uL (0.0-0.4); Eosinophils Percent Auto 2.3 % (0-4); Hematocrit 38.5 % (37.0-47.0); Hemoglobin 12.7 g/dl (12.0-16.0); Imm Gran Abs Auto 0.01 X10*3/uL (0.00-0.03); Imm Gran Pct Auto 0.2 % (0.0-0.4); Lymphocytes Absolute Auto 1.9 X10*3/uL (1.2-4.9); Lymphocytes Percent Auto 38.1 % (20-40); Mean Corpuscular Hemoglobin 33.2 pg (27.0-33.0); Mean Corpuscular Volume 100.8 fL (80.0-98.0); Mean Platelet Volume 9.4 fL (9.4-12.3); Monocytes Absolute Auto 0.4 X10*3/uL (0.1-1.2); Neutrophils Absolute Auto 2.5 x10*3/uL (2.0-8.3); Neutrophils Percent Auto 50.6 % (45-73); Platelet Count 194 X10*3/uL (160-400); Red Blood Count 3.82 X10*6/uL (4.20-5.50); Red Cell Distribution Width 13.2 % (11.0-16.0); White Blood Count 4.9 X10*3/uL (4.8-10.8)
[2022-03-18 12:27] LABS: Thyroid Stimulating Hormone 2.98 uIU/mL (0.32-4.0)
[2022-03-18 12:30] LABS: Alanine Aminotransferase 19 U/L (0-31); Albumin Level 3.8 g/dL (3.5-5.0); Alkaline Phosphatase 90 U/L (39-117); Anion Gap 14 (12-20); Aspartate Amino Transferase 26 U/L (5-31); Bilirubin Total 0.6 mg/dL (0.0-1.0); Blood Urea Nitrogen 23 mg/dL (9-16); Calcium 9.2 mg/dL (8.4-10.2); Carbon Dioxide 26 mmol/L (22-29); Chloride 108 mmol/L (96-108); Estimated Glomerular Filt Rate > 60; Glucose Random 91 mg/dL (60-115); Potassium 4.3 mmol/L (3.3-5.1); Sodium 144 mmol/L (135-145); Total Protein 6.3 g/dL (6.5-8.0)
== END 2022-03-18 07:48 | disposition home or self-care (01) ==
LOC: HO.HMGCLDS 07:47
PROVIDERS: PCP Internal Medicine; Visit Provider Internal Medicine
DX: E03.8 Other specified hypothyroidism (principal); E78.00 Pure hypercholesterolemia, unspecified; I10 Essential (primary) hypertension; N32.81 Overactive bladder
CPT/HCPCS: 36415; 80053; 84443; 85025

== ENCOUNTER 2022-03-26 09:00 | Outpatient (RCR) | payer MEDICARE, SELFPAY | END 2022-04-30 08:17 | disposition home or self-care (01) | LOC: HO.PTCHIC 09:00 | PROVIDERS: PCP Internal Medicine; Visit Provider Internal Medicine | DX: M70.62 Trochanteric bursitis, left hip (principal); M54.16 Radiculopathy, lumbar region | CPT/HCPCS: 97110; 97140; 97161; 97162 ==

== ENCOUNTER 2022-03-29 14:34 | Observation (INO) | payer MEDICARE, SELFPAY ==
[2022-03-29] VITALS (9 sets, daily range): BP systolic 129–196; BP diastolic 64–90; PULSE 69–85; RESP 17–20; TEMP 36.1–36.6; O2SAT 96–98; BMI 30.4
--- NOTE | ~2022-03-29 | CT_ITS ---
EXAMINATION: CT HEAD WITHOUT CONTRAST CLINICAL INFORMATION: 81-year-old with dizziness COMPARISON: None TECHNIQUE: Contiguous axial imaging was performed from the skull base to vertex without intravenous administration of contrast. This CT examination was performed using dose optimization techniques as appropriate, variously including the following: *Automated exposure control *Adjustment of mA and/or kV according to patient size (this includes techniques or standardized protocols for targeted exams where dose is matched to indication/reason for exam; i.e. extremities or head) *Use of iterative reconstruction technique DLP: 772 mGy-cm FINDINGS: There are incidental findings of postsurgical clip in the left side [place] most likely clipped aneurysm. Stent graft is shadowing artifact from the clip. BRAIN PARENCHYMA: No acute hemorrhage. No mass effect or herniation. Rai-white differentiation is maintained. White matter is within normal limits for age. VENTRICLES/EXTRA-AXIAL SPACES: No hydrocephalus or extra-axial fluid collections. EXTRACRANIAL STRUCTURES: Normal bones and soft tissues. Visualized paranasal sinuses and mastoids are clear. CT/CT head/brain wo IV con IMPRESSION: No acute intracranial pathology.
--- NOTE | ~2022-03-29 | XR_ITS ---
EXAMINATION: CHEST 2 VIEWS CLINICAL INFORMATION: dizziness . COMPARISON: 10/17/2020. TECHNIQUE: PA and lateral views of the chest obtained. FINDINGS: The lungs are well expanded. No focal infiltrate, effusion, edema, or pneumothorax. Cardiac and mediastinal silhouettes are within normal limits for technique. No acute bony abnormality seen XR/XR chest 2V IMPRESSION: No evidence of acute disease compared to 10/17/2020
--- NOTE | 2022-03-29 14:37 | ECG_ITS ---
Test Reason : DIZZINESS Blood Pressure : / mmHG Vent. Rate : 074 BPM Atrial Rate : 074 BPM P-R Int : 158 ms QRS Dur : 078 ms QT Int : 370 ms P-R-T Axes : 040 -06 025 degrees QTc Int : 410 ms Normal sinus rhythm Normal ECG When compared with ECG of 17-OCT-2020 15:36, No significant change was found Referred By: Generic ED Physician Electronically Signed By:DWIGHT ZHANG MD
--- NOTE | 2022-03-29 14:52 | ED_ITS ---
HPI - Dizziness General Chief Complaint: Dizziness <ERLINDA Jean-Baptiste - Last Filed: 03/29/22 15:05> Stated Complaint: dizzy sent from urgent care <ERLINDA Jean-Baptiste Last Filed: 03/29/22 15:05> Time Seen by Provider: 03/29/22 18:16 <ERLINDA Jean-Baptiste - Last Filed: 03/29/22 15:05> Source: patient <ERLINDA Anaya - Last Filed: 03/30/22 16:32> Mode of arrival: ambulatory <ERLINDA Anaya Last Filed: 03/30/22 16:32> Limitations: no limitations <ERLINDA Anaya Last Filed: 03/30/22 16:32> History of Present Illness HPI Narrative: 81-year-old female with history of hypertension and also vertigo in the past presents to the ED for dizziness described as the room spinning since Thursday. Patient states when she turned her head to the right she feels dizzy. Patient denies any chest pain, shortness of breath, or falling to the ground/hitting head. Patient denies any facial droop, change loss of vision, or paralysis of extremities. Patient states ambulating/holding the wall since Thursday. Patient denies fall <ERLINDA Anaya Last Filed: 03/30/22 16:32> Related Data Home Medications: Home Medications Medication Instructions Recorded Confirmed levothyroxine 50 mcg capsule 50 mcg PO DAILY@0600 12/07/20 03/30/22 rosuvastatin 20 mg tablet 20 mg PO BEDTIME 12/07/20 03/30/22 losartan 100 1 tab PO DAILY 01/04/21 03/30/22 mg-hydrochlorothiazide 25 mg tablet metoprolol succinate 100 mg 100 mg PO DAILY 01/04/21 03/30/22 tablet,extended release 24 hr omeprazole 20 mg capsule,delayed 40 mg PO BID@0630,1630 01/04/21 03/30/22 release folic acid 1 mg tablet 1 mg PO SUMOTUTHFRSA@0900 03/08/21 03/30/22 methotrexate sodium 2.5 mg tablet 10 mg PO WE 03/08/21 03/30/22 acyclovir 800 mg tablet 1 tab PO DAILY 03/30/22 03/30/22 ganciclovir 0.15 % eye gel (Zirgan) 1 drp ophthalmic (eye) BEDTIME 03/30/22 03/30/22 meloxicam 7.5 mg tablet 1 tab PO DAILY 03/30/22 03/30/22 mirabegron 50 mg tablet,extended 1 tab PO DAILY 03/30/22 03/30/22 release 24 hr (Myrbetriq) <ERLINDA Jean-Baptiste - Last Filed: 03/29/22 15:05> Allergies/Adverse Reactions: Allergies Allergy/AdvReac Type Severity Reaction Status Date / Time wheat [WHEAT] Allergy Intermediate IBS Verified 04/29/21 10:25 SYMPTOMS lactose [Lactose] Allergy Mild DIARRHEA/CR Verified 04/29/21 10:25 AMPS <ERLINDA Jean-Baptiste - Last Filed: 03/29/22 15:05> Review of Systems Review of Systems: Dizziness <ERLINDA Anaya - Last Filed: 03/30/22 16:32> Yes all other systems are reviewed and are negative <ERLINDA Anaya - Last Filed: 03/30/22 16:32> [facility] Past Medical History Medical History: Medical History Dysphagia Esophageal stricture GERD (gastroesophageal reflux disease) High cholesterol History of palpitations Hypertension IBS (irritable bowel syndrome) Urgency incontinence Urinary incontinence <ERLINDA Jean-Baptiste - Last Filed: 03/29/22 15:05> Surgical History: Surgical History History of esophagogastroduodenoscopy (EGD) History of salpingo-oophorectomy History of surgery Hx of cerebral aneurysm repair Hx of colonoscopy Hx of hysterectomy <ERLINDA Jean-Baptiste - Last Filed: 03/29/22 15:05> Family History Family History: Family History Father CAD (coronary artery disease) Mother CAD (coronary artery disease) <ERLINDA Jean-Baptiste - Last Filed: 03/29/22 15:05> Social History Social History: Social History Are you a primary landcare officer to a significant other at home: No Do you presently have visiting nurse or other home services: No Alcohol intake: never Patient Tobacco Use Status: Never used Tobacco Advance Directives: No Advance Directives Information Provided: No Nutrition Risks: No Nutritional Risk service: No Current occupational status: retired <ERLINDA Jean-Baptiste - Last Filed: 03/29/22 15:05> Physical Exam Vital Signs: Vital Signs: Last Vital Signs Temp 97.6 F 03/30/22 16:30 Pulse 60 03/30/22 16:30 Resp 19 03/30/22 16:30 BP 126/51 L 03/30/22 16:30 Pulse Ox 94 03/30/22 16:30 O2 Del Method 03/30/22 16:30 BMI result Body Mass Index 30.4 <ERLINDA Jean-Baptiste - Last Filed: 03/29/22 15:05> Vital Signs: Last Vital Signs Temp 97.6 F 03/30/22 16:30 Pulse 60 03/30/22 16:30 Resp 19 03/30/22 16:30 BP 126/51 L 03/30/22 16:30 Pulse Ox 94 03/30/22 16:30 O2 Del Method 03/30/22 16:30 BMI result Body Mass Index 30.4 <ERLINDA Anaya - Last Filed: 03/30/22 16:32> Const: General: cooperative, healthy appearing, comfortable, no acute distress, well developed, alert, awake and Physically active <ERLINDA Anaya - Last Filed: 03/30/22 16:32> Orientation/consciousness: oriented to person, oriented to place, oriented to time and patient oriented x3 <ERLINDA Anaya - Last Filed: 03/30/22 16:32> HEENT: Head: Yes normal to inspection, Yes No palpable skull fracture present, Yes normocephalic, Yes atraumatic and No abrasion <ERLINDA Anaya Last Filed: 03/30/22 16:32> Ears: hearing grossly normal bilaterally, external ears normal, TM's normal bilaterally, EAC's normal, mastoids normal and no periauricular adenopathy <ERLINDA Anaya Last Filed: 03/30/22 16:32> Eyes: General: appearance normal, both eyes and all related structures <ERLINDA Anaya Moiz Last Filed: 03/30/22 16:32> Neck: Neck: Yes normal visual inspection, Yes full ROM, Yes no lymphadenopathy, Yes no meningeal signs, Yes trachea midline, Yes supple, No anterior neck swelling and No tender <ERLINDA Anaya Moiz Last Filed: 03/30/22 16:32> Chest: Chest palpation & inspection: normal inspection of the chest and normal palpation of entire chest wall <ERLINDA Anaya Moiz Last Filed: 03/30/22 16:32> Cardio: Jugular venous distension: no JVD <ERLINDA Anaya Moiz Last Filed: 03/30/22 16:32> Heart sounds: S1 normal heart sound present and S2 normal heart sound present <ERLINDA Anaya Moiz Last Filed: 03/30/22 16:32> GI: Inspection: Yes normal to inspection and No abdominal wall ecchymosis <ERLINDA Anaya Moiz Last Filed: 03/30/22 16:32> Palpation (GI): Soft to palpation, not firm, nontender, no guarding and not r igid <ERLINDA Anaya Moiz Last Filed: 03/30/22 16:32> : General: No CVA tenderness and Yes no CVA tenderness <ERLINDA Anaya Moiz Filed: 03/30/22 16:32> Back/Spine/Pelvis: Back: no CVA tenderness, No CVA tenderness and No back tenderness <ERLINDA Anaya Moiz Last Filed: 03/30/22 16:32> Skin: General skin exam: no rashes or lesions noted and elasticity normal <ERLINDA Anaya Moiz Last Filed: 03/30/22 16:32> Neuro: Other: Negative facial droop. Negative slurred speech. Negative pronator drift. All extremities equal strength 5+. [id number] and rapid hand movement intact. Negative Romberg. <ERLINDA Anaya Moiz Last Filed: 03/30/22 16:32> General: oriented to person, oriented to place, oriented to time, patient oriented x3, gait normal, tone normal, moves all extremities, Normal light touch and pain sensation, no meningeal signs, no focal motor deficits and CN's II-XI intact bilaterally <ERLINDA Anaya - Last Filed: 03/30/22 16:32> Cranial nerves: Yes CN's II-XII intact bilaterally <ERLINDA Anaya - Last Filed: 03/30/22 16:32> NIH Stroke Scale Internal: Initial- Upon Arrival <ERLINDA Anaya - Last Filed: 03/30/22 16:32> Level of Consciousness: Alert <ERLINDA Anaya - Last Filed: 03/30/22 16:32> Level of Consciousness Questions: Answers both questions correctly <ERLINDA Anaya - Last Filed: 03/30/22 16:32> Level of Consciousness Commands: Performs both tasks correctly <ERLINDA Anaya - Last Filed: 03/30/22 16:32> Best Gaze: Normal <ERLINDA Anaya - Last Filed: 03/30/22 16:32> Visual: No visual loss <ERLINDA Anaya - Last Filed: 03/30/22 16:32> Facial Palsy: Normal <ERLINDA Anaya - Last Filed: 03/30/22 16:32> Motor Arm (Right): No drift <ERLINDA Anaya - Last Filed: 03/30/22 16:32> Motor Arm (Left): No drift <ERLINDA Anaya - Last Filed: 03/30/22 16:32> Motor Leg (Right): No drift <ERLINDA Anaya - Last Filed: 03/30/22 16:32> Motor Leg (Left): No drift <ERLINDA Anaya - Last Filed: 03/30/22 16:32> Limb Ataxia: Absent <ERLINDA Anaya - Last Filed: 03/30/22 16:32> Sensory: Normal <ERLINDA Anaya - Last Filed: 03/30/22 16:32> Best Language: No aphasia <ERLINDA Anaya - Last Filed: 03/30/22 16:32> Dysarthia: Normal <ERLINDA Anaya - Last Filed: 03/30/22 16:32> Extinction and Inattention: No abnormality <ERLINDA Anaya - Last Filed: 03/30/22 16:32> Score: 0 <ERLINDA Anaya - Last Filed: 03/30/22 16:32> Course Course Course Narrative: RME- 15pm 81yoF presenting to the ED with her son at bedside with a PMHx of two aneurysms, HTN, vertigo who is presenting to the ED with complaints of dizziness that has been present since Thursday started after PT for sciatic pain tx. Worse with walking, turning or laying on the right side or changing position. Reports when she had vertigo in the past she was seen by Physical therapy and they did some type of maneuver to her head although she has not had that in the while. She reports she has never had a stroke in the past. She is not on any blood thinners. She denies any changes in vision, nausea/vomiting, chest pain or shortness of breath, paresthesias, focal weakness or general weakness or any oth er symptoms complaints or concerns at this time. On exam patient is alert oriented x3. Not in any acute distress. Normal steady gait although reports moderate dizziness with ambulation. Cranial nerves are intact and equal bilaterally. Normal strength on all 4 extremities. Negative pronator drift. NIH SS score 0. Patient has non disabling symptoms therefore she would not be a tPA candidate her symptoms started on Thursday. Plan: With will obtain labs, EKG, chest x-ray, CT scan of brain. Patient will be sent to the waiting room to be evaluated in the ED. <ERLINDA Jean-Baptiste - Last Filed: 03/29/22 15:05> Reevaluation(s) Reevaluation #1: Dizziness since Thursday. Head CT scan chest x-ray normal SARS and labs are normal. Troponin negative. Orthostatics positive will order fluids and give meclizine. Will re-evaluate patient <ERLINDA Anaya - Last Filed: 03/30/22 16:32> Time: 19:16 <ERLINDA Anaya Last Filed: 03/30/22 16:32> Reevaluation #2: Patient admitted for orthostatic hypotension causing dizziness. Orthostatic hypertension father after 2 bags of fluid. Case presents hospitalist for admission and she agreed. <ERLINDA Anaya - Last Filed: 03/30/22 16:32> Time: 02:25 <ERLINDA Anaya Last Filed: 03/30/22 16:32> Medications Administered Generic Name Dose Route Start Last Admin Trade Name Maxime PRN Reason Stop Dose Admin Acyclovir 800 mg 03/30/22 09:00 03/30/22 10:56 Acyclovir 800 Mg Tablet PO 800 mg DAILY NAEL Administration Folic Acid 1 mg 03/30/22 09:00 03/30/22 10:56 Folic Acid 1 Mg Tablet PO 1 mg SuMoTuThFrSa@0900 NAEL Administration Levothyroxine Sodium 50 mcg 03/30/22 09:00 03/30/22 10:24 Levothyroxine Sodium 50 Mcg Tablet PO 50 mcg DAILY@0600 NAEL Administration Metoprolol Succinate 100 mg 03/30/22 09:00 03/30/22 10:24 Metoprolol Succinate Er 100 Mg Tab.Er.24h PO 100 mg DAILY NAEL Administration Protocol Mirabegron 50 mg 03/30/22 09:00 03/30/22 10:24 Mirabegron 50 Mg Tab.Er.24h PO 50 mg DAILY NAEL Administration Naproxen 250 mg 03/30/22 09:00 03/30/22 10:24 Naproxen 250 Mg Tablet PO 250 mg BID NAEL Administration Sodium Chloride 3 ml 03/30/22 00:00 03/30/22 10:26 0.9 % Sodium Chloride Flush 3 Ml Syringe IVFLUSH 3 ml QSHIFT NAEL Administration Discontinued Medications Generic Name Dose Route Start Last Admin Trade Name Maxime PRN Reason Stop Dose Admin Sodium Chloride 1,000 mls @ 999 mls/hr 03/29/22 18:41 03/30/22 13:31 Ns IV 03/29/22 19:41 Infused .Q1H1M STA Infusion Sodium Chloride 1,000 mls @ 999 mls/hr 03/29/22 18:42 03/30/22 13:31 Ns IV 03/29/22 19:42 Infused .Q1H1M STA Infusion Lactated Ringer's 1,000 mls @ 100 mls/hr 03/29/22 23:00 03/30/22 13:31 Lr IVCONT Infused .Q10H NAEL Infusion Meclizine HCl 50 mg 03/29/22 18:41 03/29/22 20:04 Meclizine Hcl 25 Mg Tablet PO 03/29/22 18:42 50 mg ONCE ONE Administration <ERLINDA Jean-Baptiste - Last Filed: 03/29/22 15:05> Medications Administered Generic Name Dose Route Start Last Admin Trade Name Maxime PRN Reason Stop Dose Admin Acyclovir 800 mg 03/30/22 09:00 03/30/22 10:56 Acyclovir 800 Mg Tablet PO 800 mg DAILY NAEL Administration Folic Acid 1 mg 03/30/22 09:00 03/30/22 10:56 Folic Acid 1 Mg Tablet PO 1 mg SuMoTuThFrSa@0900 NAEL Administration Levothyroxine Sodium 50 mcg 03/30/22 09:00 03/30/22 10:24 Levothyroxine Sodium 50 Mcg Tablet PO 50 mcg DAILY@0600 NAEL Administration Metoprolol Succinate 100 mg 03/30/22 09:00 03/30/22 10:24 Metoprolol Succinate Er 100 Mg Tab.Er.24h PO 100 mg DAILY NAEL Administration Protocol Mirabegron 50 mg 03/30/22 09:00 03/30/22 10:24 Mirabegron 50 Mg Tab.Er.24h PO 50 mg DAILY NAEL Administration Naproxen 250 mg 03/30/22 09:00 03/30/22 10:24 Naproxen 250 Mg Tablet PO 250 mg BID NAEL Administration Sodium Chloride 3 ml 03/30/22 00:00 03/30/22 10:26 0.9 % Sodium Chloride Flush 3 Ml Syringe IVFLUSH 3 ml QSHIFT NAEL Administration Discontinued Medications Generic Name Dose Route Start Last Admin Trade Name Maxime PRN Reason Stop Dose Admin Sodium Chloride 1,000 mls @ 999 mls/hr 03/29/22 18:41 03/30/22 13:31 Ns IV 03/29/22 19:41 Infused .Q1H1M STA Infusion Sodium Chloride 1,000 mls @ 999 mls/hr 03/29/22 18:42 03/30/22 13:31 Ns IV 03/29/22 19:42 Infused .Q1H1M STA Infusion Lactated Ringer's 1,000 mls @ 100 mls/hr 03/29/22 23:00 03/30/22 13:31 Lr IVCONT Infused .Q10H NAEL Infusion Meclizine HCl 50 mg 03/29/22 18:41 03/29/22 20:04 Meclizine Hcl 25 Mg Tablet PO 03/29/22 18:42 50 mg ONCE ONE Administration <ERLINDA Anaya - Last Filed: 03/30/22 16:32> Medical Decision Making Medical Decision Making MDM Narrative: 81-year-old female presents to the ED for dizziness since Thursday. <ERLINDA Anaya - Last Filed: 03/30/22 16:32> Differential Diagnosis Differential Diagnoses: The differential diagnosis associated with the presentation includes (Stroke, vertigo, AR, orthostatic hypertension) <ERLINDA Anaya - Last Filed: 03/30/22 16:32> Admission/Observation Consideration of admission/observation: Escalation of care including admission/observation considered <ERLINDA Anaya - Last Filed: 03/30/22 16:32> Admitted <ERLINDA Anaya - Last Filed: 03/30/22 16:32> Consult Healthcare Provider Management of the patient was discussed with: Hospitalist <ERLINDA Anaya - Last Filed: 03/30/22 16:32> Lab Data [facility] Lab Attestation statement: I reviewed the patient's lab results. <ERLINDA Anaya - Last Filed: 03/30/22 16:32> Result Diagrams: 03/29/22 15:21 03/29/22 15:21 <ERLINDA Jean-Baptiste - Last Filed: 03/29/22 15:05> Labs: Lab Results 03/29/22 03/29/22 03/29/22 Range/Units 15:21 15:21 15:21 WBC 6.6 (4.8-10.8) X10*3/uL RBC 4.13 L (4.20-5.50) X10*6/uL Hgb 13.6 (12.0-16.0) g/dl Hct 40.8 (37.0-47.0) % MCV 98.8 H (80.0-98.0) fL MCH 32.9 (27.0-33.0) pg MCHC 33.3 (31.0-35.0) g/dl RDW 12.8 (11.0-16.0) % Plt Count 192 (160-400) X10*3/uL MPV 8.8 L (9.4-12.3) fL Immature Gran % (Auto) 0.2 (0.0-0.4) % Neut % (Auto) 66.0 (45-73) % Lymph % (Auto) 26.2 (20-40) % [place] % (Auto) 6.2 (2-11) % Eos % (Auto) 0.9 (0-4) % Baso % (Auto) 0.5 (0-2) % Lymph # (Auto) 1.7 (1.2-4.9) X10*3/uL [place] # (Auto) 0.4 (0.1-1.2) X10*3/uL Eos # (Auto) 0.1 (0.0-0.4) X10*3/uL Baso # (Auto) 0.0 (0.0-0.2) X10*3/uL Abs Immat Gran (auto) 0.01 (0.00-0.03) X10*3/uL Absolute Neuts (auto) 4.4 (2.0-8.3) x10*3/uL Absolute Nucleated RBC 0.000 (0.0-0.012) X10*3/uL Nucleated RBC % (auto) 0.0 (0.0-0.2) /100WBC PT 10.9 (10.0-13.1) SEC INR 1.0 (0.9-1.1) Sodium 144 (135-145) mmol/L Potassium 3.8 (3.3-5.1) mmol/L Chloride 107 (96-108) mmol/L Carbon Dioxide 25 (22-29) mmol/L Anion Gap 16 (12-20) BUN 16 (9-16) mg/dL Creatinine 0.68 (0.5-1.4) mg/dL Estim Creat Clear Calc 57.0 Estimated GFR > 60 Random Glucose 95 (60-115) mg/dL Calcium 9.6 (8.4-10.2) mg/dL Magnesium 1.8 (1.6-2.6) mg/dL Total Bilirubin 0.7 (0.0-1.0) mg/dL AST 22 (5-31) U/L ALT 24 (0-31) U/L Alkaline Phosphatase 100 (39-117) U/L Troponin I High Sens (<3.5-17.0) ng/L Total Protein 6.6 (6.5-8.0) g/dL Albumin 4.3 (3.5-5.0) g/dL Urine Color Urine Appearance Urine pH (5.0-9.0) Ur Specific [place] (1.005-1.025) Urine Protein (Neg-Trace) mg/dL Urine Glucose (UA) (Negative) mg/dL Urine Ketones (Negative) mg/dL Urine Blood (Negative) Urine Nitrite (Negative) Ur Leukocyte Esterase (Negative) Urine RBC (0-2) /HPF Urine WBC (0-5) /HPF Ur Squamous Epith Cells (0-2) /HPF Urine Bacteria (None Seen) Hyaline Casts (0-2) /LPF Influenza Type A (PCR) (Negative) Influenza Type B (PCR) (Negative) RSV RNA Qual (PCR) (Negative) SARS-CoV-2 RNA (RT-PCR) (Negative) 03/29/22 03/29/22 03/29/22 Range/Units 15:21 15:21 21:22 WBC (4.8-10.8) X10*3/uL RBC (4.20-5.50) X10*6/uL Hgb (12.0-16.0) g/dl Hct (37.0-47.0) % MCV (80.0-98.0) fL MCH (27.0-33.0) pg MCHC (31.0-35.0) g/dl RDW (11.0-16.0) % Plt Count (160-400) X10*3/uL MPV (9.4-12.3) fL Immature Gran % (Auto) (0.0-0.4) % Neut % (Auto) (45-73) % Lymph % (Auto) (20-40) % [place] % (Auto) (2-11) % Eos % (Auto) (0-4) % Baso % (Auto) (0-2) % Lymph # (Auto) (1.2-4.9) X10*3/uL [place] # (Auto) (0.1-1.2) X10*3/uL Eos # (Auto) (0.0-0.4) X10*3/uL Baso # (Auto) (0.0-0.2) X10*3/uL Abs Immat Gran (auto) (0.00-0.03) X10*3/uL Absolute Neuts (auto) (2.0-8.3) x10*3/uL Absolute Nucleated RBC (0.0-0.012) X10*3/uL Nucleated RBC % (auto) (0.0-0.2) /100WBC PT (10.0-13.1) SEC INR (0.9-1.1) Sodium (135-145) mmol/L Potassium (3.3-5.1) mmol/L Chloride (96-108) mmol/L Carbon Dioxide (22-29) mmol/L Anion Gap (12-20) BUN (9-16) mg/dL Creatinine (0.5-1.4) mg/dL Estim Creat Clear Calc Estimated GFR Random Glucose (60-115) mg/dL Calcium (8.4-10.2) mg/dL Magnesium (1.6-2.6) mg/dL Total Bilirubin (0.0-1.0) mg/dL AST (5-31) U/L ALT (0-31) U/L Alkaline Phosphatase (39-117) U/L Troponin I High Sens < 3.5 5.6 D (<3.5-17.0) ng/L Total Protein (6.5-8.0) g/dL Albumin (3.5-5.0) g/dL Urine Color Urine Appearance Urine pH (5.0-9.0) Ur Specific [place] (1.005-1.025) Urine Protein (Neg-Trace) mg/dL Urine Glucose (UA) (Negative) mg/dL Urine Ketones (Negative) mg/dL Urine Blood (Negative) Urine Nitrite (Negative) Ur Leukocyte Esterase (Negative) Urine RBC (0-2) /HPF Urine WBC (0-5) /HPF Ur Squamous Epith Cells (0-2) /HPF Urine Bacteria (None Seen) Hyaline Casts (0-2) /LPF Influenza Type A (PCR) NEGATIVE (Negative) Influenza Type B (PCR) NEGATIVE (Negative) RSV RNA Qual (PCR) NEGATIVE (Negative) SARS-CoV-2 RNA (RT-PCR) NEGATIVE (Negative) 03/29/22 Range/Units 22:03 WBC (4.8-10.8) X10*3/uL RBC (4.20-5.50) X10*6/uL Hgb (12.0-16.0) g/dl Hct (37.0-47.0) % MCV (80.0-98.0) fL MCH (27.0-33.0) pg MCHC (31.0-35.0) g/dl RDW (11.0-16.0) % Plt Count (160-400) X10*3/uL MPV (9.4-12.3) fL Immature Gran % (Auto) (0.0-0.4) % Neut % (Auto) (45-73) % Lymph % (Auto) (20-40) % [place] % (Auto) (2-11) % Eos % (Auto) (0-4) % Baso % (Auto) (0-2) % Lymph # (Auto) (1.2-4.9) X10*3/uL [place] # (Auto) (0.1-1.2) X10*3/uL Eos # (Auto) (0.0-0.4) X10*3/uL Baso # (Auto) (0.0-0.2) X10*3/uL Abs Immat Gran (auto) (0.00-0.03) X10*3/uL Absolute Neuts (auto) (2.0-8.3) x10*3/uL Absolute Nucleated RBC (0.0-0.012) X10*3/uL Nucleated RBC % (auto) (0.0-0.2) /100WBC PT (10.0-13.1) SEC INR (0.9-1.1) Sodium (135-145) mmol/L Potassium (3.3-5.1) mmol/L Chloride (96-108) mmol/L Carbon Dioxide (22-29) mmol/L Anion Gap (12-20) BUN (9-16) mg/dL Creatinine (0.5-1.4) mg/dL Estim Creat Clear Calc Estimated GFR Random Glucose (60-115) mg/dL Calcium (8.4-10.2) mg/dL Magnesium (1.6-2.6) mg/dL Total Bilirubin (0.0-1.0) mg/dL AST (5-31) U/L ALT (0-31) U/L Alkaline Phosphatase (39-117) U/L Troponin I High Sens (<3.5-17.0) ng/L Total Protein (6.5-8.0) g/dL Albumin (3.5-5.0) g/dL Urine Color Yellow Urine Appearance Clear Urine pH 7.0 (5.0-9.0) Ur Specific [place] 1.010 (1.005-1.025) Urine Protein Negative (Neg-Trace) mg/dL Urine Glucose (UA) Negative (Negative) mg/dL Urine Ketones Negative (Negative) mg/dL Urine Blood Negative (Negative) Urine Nitrite Negative (Negative) Ur Leukocyte Esterase Trace H (Negative) Urine RBC 0-2 (0-2) /HPF Urine WBC 0-5 (0-5) /HPF Ur Squamous Epith Cells 0-2 (0-2) /HPF Urine Bacteria 4+ (None Seen) Hyaline Casts 0-2 (0-2) /LPF Influenza Type A (PCR) (Negative) Influenza Type B (PCR) (Negative) RSV RNA Qual (PCR) (Negative) SARS-CoV-2 RNA (RT-PCR) (Negative) <ERLINDA Jean-Baptiste - Last Filed: 03/29/22 15:05> Lab Results 03/29/22 03/29/22 03/29/22 Range/Units 15:21 15:21 15:21 WBC 6.6 (4.8-10.8) X10*3/uL RBC 4.13 L (4.20-5.50) X10*6/uL Hgb 13.6 (12.0-16.0) g/dl Hct 40.8 (37.0-47.0) % MCV 98.8 H (80.0-98.0) fL MCH 32.9 (27.0-33.0) pg MCHC 33.3 (31.0-35.0) g/dl RDW 12.8 (11.0-16.0) % Plt Count 192 (160-400) X10*3/uL MPV 8.8 L (9.4-12.3) fL Immature Gran % (Auto) 0.2 (0.0-0.4) % Neut % (Auto) 66.0 (45-73) % Lymph % (Auto) 26.2 (20-40) % [place] % (Auto) 6.2 (2-11) % Eos % (Auto) 0.9 (0-4) % Baso % (Auto) 0.5 (0-2) % Lymph # (Auto) 1.7 (1.2-4.9) X10*3/uL [place] # (Auto) 0.4 (0.1-1.2) X10*3/uL Eos # (Auto) 0.1 (0.0-0.4) X10*3/uL Baso # (Auto) 0.0 (0.0-0.2) X10*3/uL Abs Immat Gran (auto) 0.01 (0.00-0.03) X10*3/uL Absolute Neuts (auto) 4.4 (2.0-8.3) x10*3/uL Absolute Nucleated RBC 0.000 (0.0-0.012) X10*3/uL Nucleated RBC % (auto) 0.0 (0.0-0.2) /100WBC PT 10.9 (10.0-13.1) SEC INR 1.0 (0.9-1.1) Sodium 144 (135-145) mmol/L Potassium 3.8 (3.3-5.1) mmol/L Chloride 107 (96-108) mmol/L Carbon Dioxide 25 (22-29) mmol/L Anion Gap 16 (12-20) BUN 16 (9-16) mg/dL Creatinine 0.68 (0.5-1.4) mg/dL Estim Creat Clear Calc 57.0 Estimated GFR > 60 Random Glucose 95 (60-115) mg/dL Calcium 9.6 (8.4-10.2) mg/dL Magnesium 1.8 (1.6-2.6) mg/dL Total Bilirubin 0.7 (0.0-1.0) mg/dL AST 22 (5-31) U/L ALT 24 (0-31) U/L Alkaline Phosphatase 100 (39-117) U/L Troponin I High Sens (<3.5-17.0) ng/L Total Protein 6.6 (6.5-8.0) g/dL Albumin 4.3 (3.5-5.0) g/dL Urine Color Urine Appearance Urine pH (5.0-9.0) Ur Specific [place] (1.005-1.025) Urine Protein (Neg-Trace) mg/dL Urine Glucose (UA) (Negative) mg/dL Urine Ketones (Negative) mg/dL Urine Blood (Negative) Urine Nitrite (Negative) Ur Leukocyte Esterase (Negative) Urine RBC (0-2) /HPF Urine WBC (0-5) /HPF Ur Squamous Epith Cells (0-2) /HPF Urine Bacteria (None Seen) Hyaline Casts (0-2) /LPF Influenza Type A (PCR) (Negative) Influenza Type B (PCR) (Negative) RSV RNA Qual (PCR) (Negative) SARS-CoV-2 RNA (RT-PCR) (Negative) 03/29/22 03/29/22 03/29/22 Range/Units 15:21 15:21 21:22 WBC (4.8-10.8) X10*3/uL RBC (4.20-5.50) X10*6/uL Hgb (12.0-16.0) g/dl Hct (37.0-47.0) % MCV (80.0-98.0) fL MCH (27.0-33.0) pg MCHC (31.0-35.0) g/dl RDW (11.0-16.0) % Plt Count (160-400) X10*3/uL MPV (9.4-12.3) fL Immature Gran % (Auto) (0.0-0.4) % Neut % (Auto) (45-73) % Lymph % (Auto) (20-40) % [place] % (Auto) (2-11) % Eos % (Auto) (0-4) % Baso % (Auto) (0-2) % Lymph # (Auto) (1.2-4.9) X10*3/uL [place] # (Auto) (0.1-1.2) X10*3/uL Eos # (Auto) (0.0-0.4) X10*3/uL Baso # (Auto) (0.0-0.2) X10*3/uL Abs Immat Gran (auto) (0.00-0.03) X10*3/uL Absolute Neuts (auto) (2.0-8.3) x10*3/uL Absolute Nucleated RBC (0.0-0.012) X10*3/uL Nucleated RBC % (auto) (0.0-0.2) /100WBC PT (10.0-13.1) SEC INR (0.9-1.1) Sodium (135-145) mmol/L Potassium (3.3-5.1) mmol/L Chloride (96-108) mmol/L Carbon Dioxide (22-29) mmol/L Anion Gap (12-20) BUN (9-16) mg/dL Creatinine (0.5-1.4) mg/dL Estim Creat Clear Calc Estimated GFR Random Glucose (60-115) mg/dL Calcium (8.4-10.2) mg/dL Magnesium (1.6-2.6) mg/dL Total Bilirubin (0.0-1.0) mg/dL AST (5-31) U/L ALT (0-31) U/L Alkaline Phosphatase (39-117) U/L Troponin I High Sens < 3.5 5.6 D (<3.5-17.0) ng/L Total Protein (6.5-8.0) g/dL Albumin (3.5-5.0) g/dL Urine Color Urine Appearance Urine pH (5.0-9.0) Ur Specific [place] (1.005-1.025) Urine Protein (Neg-Trace) mg/dL Urine Glucose (UA) (Negative) mg/dL Urine Ketones (Negative) mg/dL Urine Blood (Negative) Urine Nitrite (Negative) Ur Leukocyte Esterase (Negative) Urine RBC (0-2) /HPF Urine WBC (0-5) /HPF Ur Squamous Epith Cells (0-2) /HPF Urine Bacteria (None Seen) Hyaline Casts (0-2) /LPF Influenza Type A (PCR) NEGATIVE (Negative) Influenza Type B (PCR) NEGATIVE (Negative) RSV RNA Qual (PCR) NEGATIVE (Negative) SARS-CoV-2 RNA (RT-PCR) NEGATIVE (Negative) 03/29/22 Range/Units 22:03 WBC (4.8-10.8) X10*3/uL RBC (4.20-5.50) X10*6/uL Hgb (12.0-16.0) g/dl Hct (37.0-47.0) % MCV (80.0-98.0) fL MCH (27.0-33.0) pg MCHC (31.0-35.0) g/dl RDW (11.0-16.0) % Plt Count (160-400) X10*3/uL MPV (9.4-12.3) fL Immature Gran % (Auto) (0.0-0.4) % Neut % (Auto) (45-73) % Lymph % (Auto) (20-40) % [place] % (Auto) (2-11) % Eos % (Auto) (0-4) % Baso % (Auto) (0-2) % Lymph # (Auto) (1.2-4.9) X10*3/uL [place] # (Auto) (0.1-1.2) X10*3/uL Eos # (Auto) (0.0-0.4) X10*3/uL Baso # (Auto) (0.0-0.2) X10*3/uL Abs Immat Gran (auto) (0.00-0.03) X10*3/uL Absolute Neuts (auto) (2.0-8.3) x10*3/uL Absolute Nucleated RBC (0.0-0.012) X10*3/uL Nucleated RBC % (auto) (0.0-0.2) /100WBC PT (10.0-13.1) SEC INR (0.9-1.1) Sodium (135-145) mmol/L Potassium (3.3-5.1) mmol/L Chloride (96-108) mmol/L Carbon Dioxide (22-29) mmol/L Anion Gap (12-20) BUN (9-16) mg/dL Creatinine (0.5-1.4) mg/dL Estim Creat Clear Calc Estimated GFR Random Glucose (60-115) mg/dL Calcium (8.4-10.2) mg/dL Magnesium (1.6-2.6) mg/dL Total Bilirubin (0.0-1.0) mg/dL AST (5-31) U/L ALT (0-31) U/L Alkaline Phosphatase (39-117) U/L Troponin I High Sens (<3.5-17.0) ng/L Total Protein (6.5-8.0) g/dL Albumin (3.5-5.0) g/dL Urine Color Yellow Urine Appearance Clear Urine pH 7.0 (5.0-9.0) Ur Specific [place] 1.010 (1.005-1.025) Urine Protein Negative (Neg-Trace) mg/dL Urine Glucose (UA) Negative (Negative) mg/dL Urine Ketones Negative (Negative) mg/dL Urine Blood Negative (Negative) Urine Nitrite Negative (Negative) Ur Leukocyte Esterase Trace H (Negative) Urine RBC 0-2 (0-2) /HPF Urine WBC 0-5 (0-5) /HPF Ur Squamous Epith Cells 0-2 (0-2) /HPF Urine Bacteria 4+ (None Seen) Hyaline Casts 0-2 (0-2) /LPF Influenza Type A (PCR) (Negative) Influenza Type B (PCR) (Negative) RSV RNA Qual (PCR) (Negative) SARS-CoV-2 RNA (RT-PCR) (Negative) <ERLINDA Anaya - Last Filed: 03/30/22 16:32> Independent Interpretation I performed an independent interpretation of an: EKG and CT Scan <ERLINDA Anaya Last Filed: 03/30/22 16:32> Interpretation: Normal sinus rhythm. Ventricular rate 78. Pr interval 158. QRS 70. QTC 410. Negative strep <ERLINDA Anaya Last Filed: 03/30/22 16:32> Radiology Impression Discussion of test interpretation with radiology: I have reviewed the radiologist's reading. <ERLINDA Anaya Last Filed: 03/30/22 16:32> Discharge Plan Discharge Clinical Impression: Orthostatic hypotension <ERLINDA Jean-Baptiste Last Filed: 03/29/22 15:05> Patient Disposition: Admitted As Inpatient <ERLINDA Jean-Baptiste Last Filed: 03/29/22 15:05>
[2022-03-29 15:28] LABS: Basophils Percent Auto 0.5 % (0-2); Eosinophils Absolute Auto 0.1 X10*3/uL (0.0-0.4); Eosinophils Percent Auto 0.9 % (0-4); Hematocrit 40.8 % (37.0-47.0); Hemoglobin 13.6 g/dl (12.0-16.0); Imm Gran Abs Auto 0.01 X10*3/uL (0.00-0.03); Imm Gran Pct Auto 0.2 % (0.0-0.4); Lymphocytes Absolute Auto 1.7 X10*3/uL (1.2-4.9); Lymphocytes Percent Auto 26.2 % (20-40); MANUAL DIFF FLAG NO; Mean Corpuscular HGB Conc 33.3 g/dl (31.0-35.0); Mean Corpuscular Hemoglobin 32.9 pg (27.0-33.0); Mean Corpuscular Volume 98.8 fL (80.0-98.0); Mean Platelet Volume 8.8 fL (9.4-12.3); Monocytes Absolute Auto 0.4 X10*3/uL (0.1-1.2); Monocytes Percent Auto 6.2 % (2-11); Neutrophils Absolute Auto 4.4 x10*3/uL (2.0-8.3); Platelet Count 192 X10*3/uL (160-400); Red Blood Count 4.13 X10*6/uL (4.20-5.50); Red Cell Distribution Width 12.8 % (11.0-16.0); White Blood Count 6.6 X10*3/uL (4.8-10.8)
[2022-03-29 15:34] LABS: Prothrombin Time 10.9 SEC (10.0-13.1)
[2022-03-29 15:43] LABS: Alanine Aminotransferase 24 U/L (0-31); Albumin Level 4.3 g/dL (3.5-5.0); Alkaline Phosphatase 100 U/L (39-117); Anion Gap 16 (12-20); Aspartate Amino Transferase 22 U/L (5-31); Bilirubin Total 0.7 mg/dL (0.0-1.0); Blood Urea Nitrogen 16 mg/dL (9-16); Calcium 9.6 mg/dL (8.4-10.2); Carbon Dioxide 25 mmol/L (22-29); Chloride 107 mmol/L (96-108); Estimated Glomerular Filt Rate > 60; Glucose Random 95 mg/dL (60-115); Magnesium 1.8 mg/dL (1.6-2.6); Potassium 3.8 mmol/L (3.3-5.1); Sodium 144 mmol/L (135-145); Total Protein 6.6 g/dL (6.5-8.0)
[2022-03-29 15:50] LABS: Troponin-I High Sensitivity < 3.5 ng/L (<3.5-17.0)
[2022-03-29 16:06] LABS: Influenza A PCR NEGATIVE (Negative); Influenza B PCR NEGATIVE (Negative); Resp Syncy Virus RNA Qual PCR NEGATIVE (Negative); SARS COV2 PCR INHOUSE NEGATIVE (Negative)
[2022-03-29] MEDS: 0.9 % Sodium Chloride 1,000 ML 999 ML IV ×2 (20:04→20:05)
[2022-03-29] MEDS: Meclizine HCl 25 MG TABLET 50 MG PO (20:04)
[2022-03-29 21:50] LABS: Troponin-I High Sensitivity 5.6 ng/L (<3.5-17.0)
[2022-03-29 22:17] LABS: Appearance Urine Clear; Color Urine Yellow; Glucose Urine UA Negative (Negative); Leukocyte Esterase Urine Trace (Negative); Nitrite Urine Negative (Negative); UMIC TRIGGER UACC YES; Urine Blood Negative (Negative); Urine Ketones Negative (Negative); Urine Protein Negative (Neg-Trace)
[2022-03-29 22:22] LABS: Bacteria Urine 4+ (None Seen); Hyaline Casts Urine 0-2 /LPF (0-2); RBC Urine 0-2 /HPF (0-2); Squamous Epithelial Cell Urine 0-2 /HPF (0-2); WBC Urine 0-5 /HPF (0-5)
--- NOTE | 2022-03-29 22:58 | PM.IMHP ---
History of Present Illness Date of Service: 03/29/22 Chief Complaint: dizziness 81-year-old female past medical history of hypertension, IBS, hyperlipidemia, history of cerebral aneurysm repair, as well as eye surgery with subsequent infection, currently on chronic antiviral, history of palpitations, presents to the hospital with complaints of dizziness. Patient reports that every time she gets up from a seated position, or goes down to pick something off the floor, she has significant dizziness. She reports no chest pain, no palpitations, no abdominal pain nausea vomiting, no diarrhea constipation, no urinary symptoms and no lower extremity edema. On arrival to the ED patient hemodynamically stable with blood pressure of 196/80 to orthostatic vitals positive with blood pressure dropping from 170 systolic coulee to 150s on standing Labs are significant for WBC count of 6.6, otherwise unremarkable UA negative, viral serology negative Has CT shows no acute intracranial pathology, chest x-ray negative Review of Systems Review of Systems: Yes all other systems are reviewed and are negative [facility] Medical History Dysphagia Esophageal stricture GERD (gastroesophageal reflux disease) High cholesterol History of palpitations Hypertension IBS (irritable bowel syndrome) Urgency incontinence Urinary incontinence Family History Father CAD (coronary artery disease) Mother CAD (coronary artery disease) Surgical History History of esophagogastroduodenoscopy (EGD) History of salpingo-oophorectomy History of surgery Hx of cerebral aneurysm repair Hx of colonoscopy Hx of hysterectomy Social History Are you a primary pet care attendant to a significant other at home: No Do you presently have visiting nurse or other home services: No Alcohol intake: never Patient Tobacco Use Status: Never used Tobacco Advance Directives: No Advance Directives Information Provided: No Meds Allergies Allergy/AdvReac Type Severity Reaction Status Date / Time wheat [WHEAT] Allergy Intermediate IBS Verified 04/29/21 10:25 SYMPTOMS lactose [Lactose] Allergy Mild DIARRHEA/CR Verified 04/29/21 10:25 AMPS Home Medications Medication Instructions Recorded Confirmed Last Taken Type levothyroxine 50 mcg capsule 50 mcg PO DAILY 12/07/20 03/30/22 04/29/21 09:00 History rosuvastatin 20 mg tablet 20 mg PO DAILY 12/07/20 03/30/22 Unknown History losartan 100 1 tab PO DAILY 01/04/21 03/30/22 Unknown History mg-hydrochlorothiazide 25 mg tablet metoprolol succinate 100 mg 100 mg PO DAILY 01/04/21 03/30/22 04/29/21 09:00 History tablet,extended release 24 hr omeprazole 20 mg capsule,delayed 40 mg PO DAILY 01/04/21 03/30/22 04/29/21 09:00 History release folic acid 1 mg tablet 1 mg PO DAILY 03/08/21 03/30/22 Unknown History methotrexate sodium 2.5 mg tablet 7.5 mg PO QWEEK 03/08/21 03/30/22 Unknown History acyclovir 800 mg tablet 1 tab PO DAILY 03/30/22 03/30/22 Unknown History ganciclovir 0.15 % eye gel (Zirgan) 1 drp ophthalmic (eye) BEDTIME 03/30/22 03/30/22 Unknown History meloxicam 7.5 mg tablet 1 tab PO DAILY 03/30/22 03/30/22 Unknown History mirabegron 50 mg tablet,extended 1 tab PO DAILY 03/30/22 03/30/22 Unknown History release 24 hr (Myrbetriq) Physical Exam Vital Signs and Narrative: Vital Signs: Last Vital Signs Temp 97.6 F 03/29/22 21:37 Pulse 85 03/29/22 21:59 Resp 18 03/29/22 21:37 BP 155/84 H 03/29/22 21:59 Pulse Ox 98 03/29/22 21:37 O2 Del Method 03/29/22 21:37 BMI result Body Mass Index 30.4 Const: General: cooperative and no acute distress Orientation/consciousness: patient oriented x3 Eyes: Pupils: Equal, round and reactive pupils present Resp: Effort & Inspection: normal respiratory effort Auscultation: clear to auscultation bilaterally Cardio: Rate: regular rate Rhythm: regular rhythm GI: Palpation (GI): Soft to palpation Auscultation: normal bowel sounds Skin: General skin exam: no rashes or lesions noted Neuro: Other: no neurological deficit General: patient oriented x3 Cranial nerves: Yes Equal, round and reactive pupils present Cognition (Neuro): normal cognition Extrem: General: Yes normal to inspection and Yes no pedal edema Results Labs 03/29/22 15:21 03/29/22 15:21 Labs: Laboratory Results - last 24 hr 03/29/22 03/29/22 03/29/22 15:21 15:21 15:21 MCV 98.8 H MCH 32.9 MCHC 33.3 RDW 12.8 Plt Count 192 MPV 8.8 L Immature Gran % (Auto) 0.2 Neut % (Auto) 66.0 Lymph % (Auto) 26.2 [place] % (Auto) 6.2 Eos % (Auto) 0.9 Baso % (Auto) 0.5 Lymph # (Auto) 1.7 [place] # (Auto) 0.4 Eos # (Auto) 0.1 Baso # (Auto) 0.0 Abs Immat Gran (auto) 0.01 Absolute Neuts (auto) 4.4 Absolute Nucleated RBC 0.000 Nucleated RBC % (auto) 0.0 PT 10.9 INR 1.0 Anion Gap 16 Estim Creat Clear Calc 57.0 Estimated GFR > 60 Random Glucose 95 Calcium 9.6 Magnesium 1.8 Total Bilirubin 0.7 AST 22 ALT 24 Alkaline Phosphatase 100 Troponin I High Sens Total Protein 6.6 Albumin 4.3 Urine Color Urine Appearance Urine pH Ur Specific [place] Urine Protein Urine Glucose (UA) Urine Ketones Urine Blood Urine Nitrite Ur Leukocyte Esterase Influenza Type A (PCR) Influenza Type B (PCR) RSV RNA Qual (PCR) SARS-CoV-2 RNA (RT-PCR) 03/29/22 03/29/22 03/29/22 15:21 15:21 21:22 MCV MCH MCHC RDW Plt Count MPV Immature Gran % (Auto) Neut % (Auto) Lymph % (Auto) [place] % (Auto) Eos % (Auto) Baso % (Auto) Lymph # (Auto) [place] # (Auto) Eos # (Auto) Baso # (Auto) Abs Immat Gran (auto) Absolute Neuts (auto) Absolute Nucleated RBC Nucleated RBC % (auto) PT INR Anion Gap Estim Creat Clear Calc Estimated GFR Random Glucose Calcium Magnesium Total Bilirubin AST ALT Alkaline Phosphatase Troponin I High Sens < 3.5 5.6 D Total Protein Albumin Urine Color Urine Appearance Urine pH Ur Specific [place] Urine Protein Urine Glucose (UA) Urine Ketones Urine Blood Urine Nitrite Ur Leukocyte Esterase Influenza Type A (PCR) NEGATIVE Influenza Type B (PCR) NEGATIVE RSV RNA Qual (PCR) NEGATIVE SARS-CoV-2 RNA (RT-PCR) NEGATIVE 03/29/22 22:03 MCV MCH MCHC RDW Plt Count MPV Immature Gran % (Auto) Neut % (Auto) Lymph % (Auto) [place] % (Auto) Eos % (Auto) Baso % (Auto) Lymph # (Auto) [place] # (Auto) Eos # (Auto) Baso # (Auto) Abs Immat Gran (auto) Absolute Neuts (auto) Absolute Nucleated RBC Nucleated RBC % (auto) PT INR Anion Gap Estim Creat Clear Calc Estimated GFR Random Glucose Calcium Magnesium Total Bilirubin AST ALT Alkaline Phosphatase Troponin I High Sens Total Protein Albumin Urine Color Yellow Urine Appearance Clear Urine pH 7.0 Ur Specific [place] 1.010 Urine Protein Negative Urine Glucose (UA) Negative Urine Ketones Negative Urine Blood Negative Urine Nitrite Negative Ur Leukocyte Esterase Trace H Influenza Type A (PCR) Influenza Type B (PCR) RSV RNA Qual (PCR) SARS-CoV-2 RNA (RT-PCR) Imaging Radiologist's Impressions: Impressions Chest X-Ray 03/29/22 15:33 IMPRESSION: No evidence of acute disease compared to 10/17/[address] 03/29/22 15:52 IMPRESSION: No acute intracranial pathology. Assessment and Plan (1) Orthostatic hypotension: Status: Acute (2) Hypertensive crisis: Status: Acute Plan 81-year-old female with past medical history of hypertension, hypothyroidism, presents to the hospital with complaints of dizziness found to have orthostatic positive # orthostatic hypotension - patient on multiple antihypertensives with postural hypertension with blood pressure in the 190s on arrival - will consult Nephrology for evaluation and guidance in regards to her antihypertensives - I will at this time hold the combined hydrochlorothiazide- losartan antihypertensive as patient's blood pressure dropped from 190 to 120s spontaneously without any treatment # hypertensive crisis - presented with blood pressure in the 190 systolic coulee - improved without any treatment - at this time will consult Nephro as above # hypothyroidism - continue levothyroxine # hyperlipidemia - continue statin # history of GERD - continue PPI DVT prophylaxis: Early ambulation Time Spent With Patient Time: Total time managing care of this patient today ____ minutes. Quality Stroke Does the patient have a stroke diagnosis?: No VTE Prior VTE?: No VTE Risk Level:: Medical - moderate - high VTE Device Contraindication: Treatment Not Indicated VTE Drug Contraindication: N/A - Med Ordered
--- NOTE | 2022-03-30 00:37 | PC.NURSE ---
Med rec completed with pt's list from home.
[2022-03-30] MEDS: Lactated Ringers 1,000 ML 100 ML IVCONT ×2 (00:55→10:26)
[2022-03-30] MEDS: 0.9 % Sodium Chloride Flush 3 ML SYRINGE IVFLUSH ×3 (00:56→16:35)
[2022-03-30 01:47] VITALS: BP 127/55; PULSE 62; RESP 16; TEMP 36.5; O2SAT 98
--- OUTSIDE RECORDS SUMMARY | 2022-03-30 02:41 | XMS_ITS | Continuity of Care Document ---
:1940 Author Organization [facility] Address [address] [place] [address] Drive [address] [place] [address]- Care Team Providers Name Role Phone Cleo Fierro MD Primary Care Physician Encounter [facility] [place] Date(s): 03/09/19 - 03/19/[address] [place] [address]- [facility] Attending Physician: Karine Diane Admitting Physician: AdmtrKarine Referring Physician: Admtr, ArFarzad Allergies, Adverse Reactions, Alerts No Known Medication Allergies Substance Reaction Severity Status Wheat diarrhea and cramps Active Lactose ibs Active Medications Amlodipine = 2.5 mg, By Mouth, Daily in AM, 0 Refills, Maintenance, 08/11/18 9:54:04 EDT Start Date: 08/11/18 Status: OrderedBetimol 0.5, Eye, Left, 0 Refills, Maintenance, 02/04/19 10:10:00 EST Start Date: 02/04/19 Status: OrderedCrestor 20 mg oral tablet 1 tablet, By Mouth, Daily, # 30 tablet, 0 Refills, Maintenance, 10/28/13 12:46:43, Tablet Start Date: 10/28/13 Status: Ordereddicyclomine 10 mg oral capsule 2 capsule = 20 mg, By Mouth, 4 times a day, PRN Other, 0 Refills, Maintenance, 08/11/18 9:54:56 EDT Start Date: 08/11/18 Status: Orderedfamciclovir 250 mg oral tablet 1 tablet = 250 mg, By Mouth, 3 times a day, 0 Refills, Maintenance, 02/04/19 10:09:00 EST Start Date: 02/04/19 Status: OrderedHydrochlorothiazide = 25 mg, By Mouth, Daily in AM, 0 Refills, Maintenance, 02/04/19 10:05:00 EST Start Date: 02/04/19 Status: OrderedLevothyroxine = 50 mcg, By Mouth, Daily in AM, 0 Refills, Maintenance, 09/23/13 12:35:01 EDT Start Date: 09/23/13 Status: OrderedLosartan Tablet 100 mg, By Mouth, Daily at bedtime, Maintenance, 10/28/13 12:48:05 EDT Start Date: 10/28/13 Status: Orderedmetoprolol 100 mg oral tablet 100 mg, 1, tablet, By Mouth, Daily in AM, Refills 0, Maintenance, 02/04/19 10:02:00 EST Start Date: 02/04/19 Status: Orderedomeprazole 20 mg oral enteric coated capsule 1 capsule = 20 mg, By Mouth, Daily, 0 Refills, Maintenance, 09/23/13 12:37:45 Start Date: 09/23/13 Status: Orderedprednisolone acetate = 1 %, Eye, Left, Daily in AM, 0 Refills, Maintenance, 02/04/19 10:13:00 EST Start Date: 02/04/19 Status: OrderedSimbrinza 1%- 0.2% ophthalmic suspension 1 drops, Eye, Left, 0 Refills, Maintenance, 02/04/19 10:12:00 EST Start Date: 02/04/19 Status: Orderedtolterodine 4 mg oral capsule, extended release 1 capsule = 4 mg, By Mouth, Daily, 0 Refills, Maintenance, 08/11/18 9:54:18 EDT Start Date: 08/11/18 Status: OrderedZirgan = 0.15 %, Eye, Left, 5 times a day, 0 Refills, Maintenance, 02/04/19 10:13:00 EST Start Date: 02/04/19 Status: Ordered Problem List Condition Effective Dates Status Health Status Informant Benign essential Active hypertension(Confirmed) Dysphagia(Confirmed) Active Aneurysm, cerebral(Confirmed) Active Irritable bowel syndrome(Confirmed) Active Social History Social History Type Response Smoking Status Never (less than 100 in life time) entered on: 08/11/18 Sex
--- OUTSIDE RECORDS SUMMARY | 2022-03-30 02:41 | XMS_ITS | Continuity of Care Document ---
:1940 Author Organization [facility] Address [address] [place] [id number]- Care Team Providers Name Role Phone Cleo Fierro MD Primary Care Physician Encounter [facility] [place] Date(s): 02/18/19 - 02/19/[address] [address]- [facility] Discharge Disposition: A-D/C Home Attending Physician: Jarret Rayo MD Admitting Physician: Jarret Rayo MD Referring Physician: Jarret Rayo MD Allergies, Adverse Reactions, Alerts No Known Medication Allergies Substance Reaction Severity Status Wheat diarrhea and cramps Active Lactose ibs Active Medications acetaminophen 325 mg oral tablet 650 mg, By Mouth, Every 4 hours, PRN, for 7 days, # 84 tablet, Refills 0, Tot. Refills 0, Acute 02/26/19 11:09:00 EST, Pain , Moderate, 02/19/19 11:09:00 EST, Print Requisition Start Date: 02/19/19 Stop Date: 02/26/19 Status: OrderedAmlodipine = 2.5 mg, By Mouth, Daily in [...] Maintenance, 09/23/13 12:37:45 Start Date: 09/23/13 Status: OrderedoxyCODONE 5 mg oral tablet 5 mg, 1, tablet, By Mouth, Every 6 hours, PRN, for 3 days, # 10 tablet, Refills 0, Tot. Refills 0, Acute 02/22/19 11:09:00 EST, Pain , Severe, 02/19/19 11:09:00 EST, Print Requisition, Partial fill upon patient request Start Date: 02/19/19 Stop Date: 02/22/19 Status: Orderedprednisolone acetate = 1 %, Eye, [...] Aneurysm, cerebral(Confirmed) Active Irritable bowel syndrome(Confirmed) Active Procedures Procedure Date Related Diagnosis Body Site Status POEM (Per-oral endoscopic myotomy) 02/18/19 Completed Vital Signs Most recent to oldest 1 2 3 [Reference Range]: Height 150 cm 150 cm 150 cm (02/19/19 11:37 AM) (02/19/19 7:46 AM) (02/19/19 3:00 AM) Weight 73.1 kg 73.1 kg (02/18/19 7:06 AM) (02/04/19 10:34 AM) Oxygen Saturation [94-100 98 % 95 % 95 % %] (02/19/19 11:37 AM) (02/19/19 7:46 AM) (02/19/19 3:00 AM) Pulse Rate [55-90 bpm] 50 bpm 60 bpm 60 bpm *L* (02/19/19 9:11 AM) (02/19/19 9:00 AM ) (02/19/19 11:37 AM) Body Mass Index 32.49 32.49 [18.5-24.99] *>HHI* *>HHI* (02/18/19 7:06 AM) (02/04/19 10:34 AM) Blood Pressure 119/58 mm Hg 111/50 mm Hg 111/50 mm Hg [90-138/55-84 mm Hg] (02/19/19 11:37 AM) (02/19/19 9:11 AM) (02/19/19 9:11 AM) Respiratory Rate [16-30 20 br/min 18 br/min 21 br/mi n br/min] (02/19/19 11:37 AM) (02/19/19 7:46 AM) (02/19/19 3:00 AM) Temperature [96.8-100.4 97.4 DegF 97.5 DegF 98.1 Deg F DegF] (02/19/19 11:37 AM) (02/19/19 7:46 AM) (02/19/19 3:00 AM) Liters per Minute 2 L/min 2 L/min 2 L/min (02/18/19 11:15 AM) (02/18/19 10:45 AM) (02/18/19 10:3 0 AM) Mode of Delivery (Oxygen) Room air Room air Room a ir (02/19/19 11:37 AM) (02/19/19 7:46 AM) (02/19/19 3:00 AM) Blood pressure sites Arm, right Arm, right Arm, left (02/19/19 11:37 AM) (02/19/19 7:46 AM) (02/19/19 3:00 AM) Temperature Route Oral Oral Oral (02/19/19 11:37 AM) (02/19/19 7:46 AM) (02/19/19 3:00 AM) Dry Weight 73.0 kg 73.1 kg (02/18/19 7:06 AM) (02/04/19 10:34 AM) Weight Obtained Via Standing scale (02/04/19 10:34 AM) Dry Weight Obtained Via Standing scale Standing scale (02/18/19 7:06 AM) (02/04/19 10:34 AM) Social History Social History Type Response Smoking Status Never (less than 100 in life time) entered on: 08/11/18 Sex
--- OUTSIDE RECORDS SUMMARY | 2022-03-30 02:41 | XMS_ITS | Continuity of Care Document ---
:1940 Author Organization [facility] Address [address] [place] [address] Drive [address] [place] [address]- Care Team Providers Name Role Phone Cleo Fierro MD Primary Care Physician Encounter [facility] [place] Date(s): 03/09/19 - 03/16/[address] [place] [address]- [facility] Encounter Diagnosis Achalasia (Discharge Diagnosis) - 03/09/19 Attending Physician: Jarret Rayo MD Referring Physician: Cleo Fierro MD Allergies, Adverse Reactions, Alerts No Known [...] Aneurysm, cerebral(Confirmed) Active Irritable bowel syndrome(Confirmed) Active Diagnosis Diagnosis Type Effective Dates Health Status Clinical Serv ice Informant Achalasia Discharge 03/09/19 Diagnosis Vital Signs Most recent to oldest [Reference Range]: 1 Height 150 cm (03/09/19 10:24 AM) Weight 72 kg (03/09/19 10:24 AM) Body Mass Index [18.5-24.99] 32 *>HHI* (03/09/19 10:24 AM) Respiratory Rate [16-30 br/min] 16 br/min (03/09/19 10:24 AM) Temperature [96.8-100.4 DegF] 97.9 DegF (03/09/19 10:24 AM) Temperature Route Temporal (03/09/19 10:24 AM) Weight Obtained Via Standing scale (03/09/19 10:24 AM) Social History Social History Type Response Smoking Status Never (less than 100 in life time) entered on: 08/11/18 Sex
--- OUTSIDE RECORDS SUMMARY | 2022-03-30 02:41 | XMS_ITS | Continuity of Care Document ---
:1940 Author Organization [facility] Address [address] [place] [id number]- Care Team Providers Name Role Phone Cleo Fierro MD [id number]/31/[facility] - 02/10/19 [facility] [address] [address]- [facility] Attending Physician: Karine Diane Admitting Physician: AdmKarine aceves Referring Physician: Admtr, ArFarzad Allergies, Adverse Reactions, [...]
--- OUTSIDE RECORDS SUMMARY | 2022-03-30 02:41 | XMS_ITS ---
:1940 Author Organization [facility] Address [address] [place] [address] Care Team Providers Name Role Phone José Miguel Upton Unavailable Unavailable PROBLEMS Type Condition ICD9-CM [id number] Onset Condition SNOMED Cod e Code Code Dates Status Problem Achalasia K22.0 Active 33949945 Problem Pharyngoesophageal R13.14 Active 4 2369426 dysphagia Problem Abnormal barium R93.3 Active 1688 29523 swallow Problem Fecal smearing R15.1 Active 35245 3006 Problem Irritable bowel K58.0 Active 1971 50058 syndrome with diarrhea Problem Diverticulosis of K57.30 Active 73 2730315 colon Problem Esophageal dysphagia R13.10 Active 27748659 Problem Diarrhea, unspecified R19.7 Active 89631012 type Problem Incontinence of feces, R15.9 Active 25848799 unspecified fecal incontinence type Problem Change in bowel habits R19.4 Active 99117177 ALLERGIES Substance Reaction Event Type Date Status wheat Unknown Non Drug Allergy Mar, Active Lactose intolerant Unknown Non Drug Allergy Mar, Activ e ENCOUNTERS Encounter Location Date Diagnosis [address] Mar, [facility] [address] [place] [address] [facility] Outpatient [address] [place] [address] 14 Apr, 2021 Change in bowel habits R19.4 [place] [id number] ; Diarrhea R19.7 ; Diverticulosis o f colon K57.30 and Inter nal hemorrhoids K64. [address] Mar, Achalasi a K22.0 ; Change in [facility] [address] [place] bowel habi ts R19.4 ; [address] Irritable bowel syndrome with diarrhea K58.0 a nd Fecal smearing R15.[address] [place] [address] Apr, [facility] [address] [place] [address] [place] [address] June, Incontin ence of feces, [facility] [address] [place] unspecifie d fecal [address] incontinence typ e R15.9 and Diarrhea, unspec ified type R19.7 [place] [address] May, Achalasi a K22.0 and [facility] [address] [place] Esophageal dysphagia R13.10 [address] [place] [address] Mar, [facility] [address] [place] [address] [place] [address] Oct, Achalasi a K22.0 and [facility] [address] [place] Esophageal dysphagia R13.10 [address] [place] [address] June, [facility] [address] [place] [address] [place] [address] June, Achalasi a K22.0 and [facility] [address] [place] Esophageal dysphagia R13.10 [address] [place] [address] June, [facility] [address] [place] [address] [place] [address] Mar, [facility] [address] [place] [address] [facility] Outpatient [address] [place] [address] Jul, [place] [phone] [place] [address] Jul, Esophage al dysphagia R13.10 ; [facility] [address] [place] Abnormal b arium swallow R93.3 [phone] and Achalasia K2 2.0 [place] [address] Jul, Pharyngo esophageal dysphagia [facility] [address] [place] R13.14 and Achalasia K22.0 [address] [place] [address] Jul, Achalasi a K22.0 and Irritable [facility] [address] [place] bowel synd mayra with diarrhea [address] K58.0 [facility] [address] Apr, [facility] [address] [place] [address] [facility] [address] Jan, [facility] [address] [place] [address] [facility] [address] Apr, [facility] [address] [place] [address] [facility] [address] Aug, [facility] [address] [place] [address] [facility] [address] Jul, [facility] [address] [place] [address] [facility] [address] Jul, Dysphagi a 787.20 and [facility] [address] [place] Irritable bowel syndrome [address] 564.1 [facility] Outpatient [address] Feb, [place] [phone] [facility] [address] Jan, Dysphagi a 787.20 and GERD [facility] [address] [place] (gastroeso phageal reflux [address] disease) 530.81 [facility] [address] Jan, [facility] [address] [place] [address] [facility] ER [address] Jul, [place] [id number] [facility] Outpatient [address] Feb, [place] [id number] [facility] ER [address] Feb, [place] [id number] [facility] ER [address] Oct, [place] [id number] [facility] Outpatient [address] Sep, [place] [id number] [facility] Outpatient [address] Nov, [place] [id number] [facility] ER [address] Nov, [place] [id number] IMMUNIZATIONS Vaccine Route Administration Date Status Influenza Unknown Nov 27, 2020 Administered Influenza Unknown Oct 17, 2018 Administered Influenza Unknown Oct 17, 2017 Administered Flu vaccine no Preserv 3 and > Unknown Nov 18, 2016 A dministered Influenza Unknown Oct 18, 2015 Administered SOCIAL HISTORY Never Assessed REASON FOR REFERRAL FUNCTIONAL STATUS PLAN OF CARE Activity Details Pending Test Pathology Pending Test Esophageal Motility study Pending Test XR BARIUM SWALLOW-ESOPHAGUS Pending Test XR BARIUM SWALLOW-ESOPHAGUS Future/Pending Procedure COLONOSCOPY [id number] Future/Pending Procedure UPPER GI ENDOSCOPY BALLOOON DILATION OF ESOPH [id number] Future/Pending Procedure UPPER GI ENDOSCOPY BALLOOON DILATION OF ESOPH [id number] VITAL SIGNS Weight 160 lbs 2021-03-26 Weight 159 lbs 2019-06-30 Weight 159 lbs 2019-05-27 Weight 159 lbs 2018-11-09 Weight 159 lbs 2018-07-13 Weight 161 lbs 2017-08-05 Weight 160 lbs 2016-08-05 Weight 173 lbs 2013-07-28 Weight 174 lbs 2012-01-28 Height 59.50 in 2021-03-26 Height 59.50 in 2019-06-30 Height 59.50 in 2019-05-27 Height 59.50 in 2018-11-09 Height 59.50 in 2018-07-13 Height 59.50 in 2017-08-05 Height 59.50 in 2016-08-05 Height 59.50 in 2013-07-28 Height 59.50 in 2012-01-28 BMI 31.77 kg/m2 2021-03-26 BMI 31.57 kg/m2 2019-06-30 BMI 31.57 kg/m2 2019-05-27 BMI 31.57 kg/m2 2018-11-09 BMI 31.57 kg/m2 2018-07-13 BMI 31.97 kg/m2 2017-08-05 BMI 31.77 kg/m2 2016-08-05 BMI 34.35 kg/m2 2013-07-28 BMI 34.55 kg/m2 2012-01-28 Heart Rate 56 /min 2016-08-05 Heart Rate 56 /min 2013-07-28 Temperature 97.6 degrees Fahrenheit 2021-03-26 Blood pressure systolic 000 mm Hg 2021-03-26 Blood pressure diastolic 00 mm Hg 2021-03-26 MEDICATIONS Medication Instructions Dosage Frequency Start End Duration Statu s Date Date Simbrinza 1-0.2 INSTILL 1 90 Unknow n % DROP INTO EACH EYE TWICE DAILY Durezol 0.05 % Ophthalmic 1 drop into 12h 7 day(s) U nknown Twice a day affected eye Omeprazole 20 MG TAKE 1 30 Active CAPSULE BY MOUTH TWICE DAILY Levothyroxine Orally Once a 1 tablet on 24h Active Sodium 50 MCG day an empty stomach in the morning Tolterodine Orally Once a 1 capsule 24h Unkn own Tartrate ER 4 MG day Dicyclomine HCl TAKE 1 TO 2 10 Acti ve 10 MG CAPSULES BY MOUTH THREE TIMES DAILY NEEDED FOR ABDOMINAL CRAMPS/BLOAT ING Losartan Orally Once a 1 tablet 24h Active Potassium 100 MG day Famciclovir 500 Orally Twice a 1 tablet 12h 10 day(s ) Active MG day Zirgan 0.15 % Ophthalmic 1 drop into 8h Unk nown three times a the lower day eyelid of affected eye until corneal ulcer heals Oxervate 0.002 % Ophthalmic Six 1 drop into 4h Unknown times a day affected eye at 2 hour intervals predniSONE 5 MG Orally Once a 1 tablet 24h 30 day(s) Unknown day Metoprolol Orally once a 1 tablet 24h Active Tartrate 100 MG day with food Rosuvastatin Orally Once a 1 tablet 24h Acti ve Calcium 20 MG day amLODIPine Orally Once a 1 tablet 24h Unknow n Besylate 2.5 MG day Ocuvite Unknown prednisoLONE INSTILL 1 75 Unknown Acetate 1 % DROP INTO LEFT EYE ONCE DAILY PROCEDURES Procedure Date Ordered Result Body Site PRES/ABSN URINE INCON ASSESS August 05, 2016 TOBACCO NON-USER August 05, 2017 TV 11-20 Minutes May 27, 2019 BP SCR PRFRM RCMDD DEFIND SCR INTVL Nov 09, 2018 BP SCR PRFRM RCMDD DEFIND SCR INTVL July 13, 2018 BMI >=30 CALCUATE W/FOLLOWUP August 05, 2016 DOC MEDS VERIFIED W/PT OR RE Mar 26, 2021 BP SCR PRFRM RCMDD DEFIND SCR INTVL August 05, 2016 PRES/ABSN URINE INCON ASSESS Nov 09, 2018 TOBACCO NON-USER August 05, 2016 COLONOSCOPY AND BIOPSY April 29, 2021 DOC MEDS VERIFIED W/PT OR RE July 28, 2013 BP SCR PRFRM RCMDD DEFIND SCR INTVL August 05, 2017 TV 11-20 Minutes June 30, 2019 PRES/ABSN URINE INCON ASSESS July 13, 2018 DOC MEDS VERIFIED W/PT OR RE August 05, 2016 FLU IMMUNIZE ORDER/ADMIN August 05, 2017 TOBACCO NON-USER Mar 26, 2021 PRES/ABSN URINE INCON ASSESS August 05, 2017 INTRVL 3+YRS PTS CLNSCP DOCD April 29, 2021 DOC MEDS VERIFIED W/PT OR RE Nov 09, 2018 DOC MEDS VERIFIED W/PT OR RE July 13, 2018 RCMND FLW-UP 10 YRS DOCD April 29, 2021 TOBACCO NON-USER Nov 09, 2018 TOBACCO NON-USER July 13, 2018 COLORECTAL CA SCREEN DOC REV August 05, 2016 FLU IMMUNIZE ORDER/ADMIN August 05, 2016 DOC MEDS VERIFIED W/PT OR RE August 05, 2017 BMI >=30 CALCUATE W/FOLLOWUP August 05, 2017 BP SCR NOT PRFRM REC REASON NOS Mar 26, 2021 RESULTS Name Result Date Reference Range GI BIOPSY 2017-08-12 G.I. BIOPSY BARIUM SWALLOW ESOPHAGUS 2017-08-07 BARIUM SWALLOW ESOPHAGUS 2013-08-01 GI BIOPSY 2012-03-11 G.I. BIOPSY REASON FOR VISIT is soiling herself, IBS w/ diarrhea, fecal smearing, change in bwl habits, Patient presents today for leakage, Patient presents today for LOSS OF CONTROL OVER BOWELS, diarrhea, patient presents today for bowel issues, achalasia, achalasia, FYI, Patient presents today for ACHALASIA, POEM procedure, patient presents today for office visit choking on food, continue omeprazole? choking on food., fecal incontinence x second week/waiting on pt call back, esphageal stricture, Patient presents today for trouble swallowing, patient presents today for f/u for achalasia and swallowing, achalasia & swallowing issues, r/s - cancelled April 24 @12:40, Refill on RX Bentyl, ? meds, dysphagia f/u, Dysphagia, dysphagia, choking on food, Soon appt. Insurance Providers [facility] Member Patient Patient Patient Patient Patient Subscriber Subscriber Subscriber Group Insurance Plan Plan Plan Plan ID Relationship Address Phone Name Date of ID Name Date of No Type Insurance Insurance Insurance Coverage to Subscriber Address Phone Name Dates MEDICARE [phone] MEDICARE self FRAN[place]ESCA [id number] [place] [address] [place] [address] MEDEX ATTN [phone] MEDEX self [place] [id number] CLAIMS [address] [facility] [address]
--- OUTSIDE RECORDS SUMMARY | 2022-03-30 02:41 | XMS_ITS | Continuity of Care Document ---
:1940 Author Organization [facility] Address [address] [place] [address]- Care Team Providers Name Role Phone Cleo iFerro MD Primary Care Physician Encounter [facility] ACCT R [id number] Date(s): 02/01/19 - 02/11/[address] [address]- [facility] Attending Physician: Karine Diane Admitting Physician: Admtr, Karine Referring Physician: Admtr, [id number] Allergies, Adverse Reactions, Alerts No Known Medication [...]
[2022-03-30 07:20] VITALS: BP 138/53; PULSE 62; RESP 11; TEMP 36.4; O2SAT 97
[2022-03-30 07:25] LABS: Alanine Aminotransferase 17 U/L (0-31); Albumin Level 3.2 g/dL (3.5-5.0); Alkaline Phosphatase 70 U/L (39-117); Anion Gap 12 (12-20); Aspartate Amino Transferase 17 U/L (5-31); Bilirubin Total 0.7 mg/dL (0.0-1.0); Blood Urea Nitrogen 18 mg/dL (9-16); Carbon Dioxide 24 mmol/L (22-29); Chloride 111 mmol/L (96-108); Creatinine Clr Calc Pharmacy 61.5; Estimated Glomerular Filt Rate > 60; Glucose Random 85 mg/dL (60-115); Potassium 3.6 mmol/L (3.3-5.1); Sodium 143 mmol/L (135-145); Total Protein 4.9 g/dL (6.5-8.0)
[2022-03-30 07:32] LABS: Calcium 8.6 mg/dL (8.4-10.2)
--- NOTE | 2022-03-30 08:26 | PHA.MEDREC ---
Pharmacy Consult ? Medication Reconciliation Pharmacy has completed the medication reconciliation. Clarified med rec with pt
[2022-03-30] MEDS: Levothyroxine Sodium 50 MCG TABLET PO (10:24)
[2022-03-30] MEDS: Metoprolol Succinate ER 100 MG TAB.ER.24H PO (10:24)
[2022-03-30] MEDS: Mirabegron 50 MG TAB.ER.24H PO (10:24)
[2022-03-30] MEDS: NaPROXEN 250 MG TABLET PO ×2 (10:24→20:41)
[2022-03-30] MEDS: Folic Acid 1 MG TABLET PO (10:56)
--- NOTE | 2022-03-30 11:38 | PC.NURSE ---
assumed care of pt at 1100, pt one assist to bathroom, reports some improvement, dizzy on sitting but pt reports faster resolution. denies any pain at this time, LR running at 100ml/hr.
--- NOTE | 2022-03-30 12:36 | MHC.CM.PN ---
[place] 03/30/22, EMR REVIEWED, PT ADMITTED W/ORTHOSTATIC HYPERTENSION. CM MET W/PT WHO IS A&0X4, LIVES W/DTR/HCP MAGALI AND SON WHO IS DEAF, PT IS FULLY INDEP W/ALL CARE, STILL DRIVES AND IS ACTIVE IN THE COMMUNITY, PT DENIES USE OF DME/SERVICES, VERIFIES COVID VACC X4, PCP LAURA ROBERT AND HCP IS DTR MAGALI [phone] AND COPY ON FILE AT PCP OFFICE. PER PT REQUEST D/T NOT HAVING A CELL PHONE OR PHONE IN ED ROOM KENDY CALLED SON KIMBERLY AT [phone] TO UPDATE HIM ON PLAN, KIMBERLY REPORTS THAT PT'S SON KEELY WILL OR HIMSELF WILL TRANSPORT PT TOMORROW, KIMBERLY WORKS UNTIL 2:30PM HOWEVER KEELY IS AVAILABLE ALL DAY. ANTIC PT WILL D/C MON NO SERVICES W/SON KIMBERLY OR KEELY FOR TRANSPORT
--- NOTE | 2022-03-30 12:54 | HO.PM.IMPN ---
Subjective Subjective Date of Service: 03/30/22 Interval History: Being followed for dizziness, feeling better walk to the bathroom, receiving IV fluids denies nausea vomiting, no abdominal pain, no visual symptoms, no headache, no speech impairment, no weakness or unsteady gait, tolerating diet. Review of Systems Review of Systems: Yes all other systems are reviewed and are negative Physical Exam Vital Signs: Vital Signs: Last Vital Signs Temp 97.6 F 03/30/22 07:20 Pulse 62 03/30/22 07:20 Resp 11 L 03/30/22 07:20 BP 138/53 L 03/30/22 07:20 Pulse Ox 97 03/30/22 07:20 O2 Del Method 03/30/22 07:20 BMI result Body Mass Index 30.4 Const: Other: General resting comfortably in no acute distress. Eyes no nystagmus Neck supple, no JVD. CVS regular rate rhythm, Respiratory lungs clear to auscultation, no respiratory distress, no wheeze, no rhonchi. Gastrointestinal abdomen soft, nontender, bowel sounds audible, no guarding , no rigidity. Extremities no edema. Neuro nonfocal , speech clear. Skin no rash Psych appropriate affect Objective Data Active Medications Acetaminophen (Acetaminophen 325 Mg Tablet) 650 mg PO Q6H PRN PRN Reason: Pain, Mild (Pain Scale 1-3) Acyclovir (Acyclovir 800 Mg Tablet) 800 mg PO DAILY [facility] Last Admin: 03/30/22 10:56 Dose: 800 mg Documented By: RON Atorvastatin Calcium (Atorvastatin Calcium 80 Mg Tablet) 80 mg PO BEDTIME [facility] Folic Acid (Folic Acid 1 Mg Tablet) 1 mg PO SuMoTuThFrSa@0900 [facility] Last Admin: 03/30/22 10:56 Dose: 1 mg Documented By: RON Lactated Ringer's (Lr) 1,000 mls @ 100 mls/hr IVCONT .Q10H [facility] Last Admin: 03/30/22 10:26 Dose: 100 mls/hr Documented By: RON Levothyroxine Sodium (Levothyroxine Sodium 50 Mcg Tablet) 50 mcg PO DAILY@0600 [facility] Last Admin: 03/30/22 10:24 Dose: 50 mcg Documented By: RON Methotrexate (Methotrexate Sodium 2.5 Mg Tablet) 10 mg PO We@0900 [facility] Metoprolol Succinate (Metoprolol Succinate Er 100 Mg Tab.Er.24h) 100 mg PO DAILY [facility]; Protocol Last Admin: 03/30/22 10:24 Dose: 100 mg Documented By: RON Mirabegron (Mirabegron 50 Mg Tab.Er.24h) 50 mg PO DAILY [facility] Last Admin: 03/30/22 10:24 Dose: 50 mg Documented By: RON Naproxen (Naproxen 250 Mg Tablet) 250 mg PO BID [facility] Last Admin: 03/30/22 10:24 Dose: 250 mg Documented By: RON Non-Formulary Medication (Ganciclovir [Zirgan]) 1 drop EYE-BOTH BEDTIME [facility] Omeprazole (Omeprazole 40 Mg Capsule.Dr) 40 mg PO BID@0630,1630 [facility] Ondansetron HCl (Ondansetron Hcl 4 Mg/2 Ml Vial) 4 mg IVPUSH Q8H PRN PRN Reason: Nausea and Vomiting Sodium Chloride (0.9 % Sodium Chloride Flush 3 Ml Syringe) 3 ml IVFLUSH QSHIFT [facility] Last Admin: 03/30/22 10:26 Dose: 3 ml Documented By: RON Labs 03/29/22 15:21 03/30/22 06:24 Labs: Laboratory Results - last 24 hr 03/29/22 03/29/22 03/29/22 15:21 15:21 15:21 MCV 98.8 H MCH 32.9 MCHC 33.3 RDW 12.8 Plt Count 192 MPV 8.8 L Immature Gran % (Auto) 0.2 Neut % (Auto) 66.0 Lymph % (Auto) 26.2 Anson % (Auto) 6.2 Eos % (Auto) 0.9 Baso % (Auto) 0.5 Lymph # (Auto) 1.7 Anson # (Auto) 0.4 Eos # (Auto) 0.1 Baso # (Auto) 0.0 Abs Immat Gran (auto) 0.01 Absolute Neuts (auto) 4.4 Absolute Nucleated RBC 0.000 Nucleated RBC % (auto) 0.0 PT 10.9 INR 1.0 Anion Gap 16 Estim Creat Clear Calc 57.0 Estimated GFR > 60 Random Glucose 95 Calcium 9.6 Magnesium 1.8 Total Bilirubin 0.7 AST 22 ALT 24 Alkaline Phosphatase 100 Troponin I High Sens Total Protein 6.6 Albumin 4.3 Urine Color Urine Appearance Urine pH Ur Specific [place] Urine Protein Urine Glucose (UA) Urine Ketones Urine Blood Urine Nitrite Ur Leukocyte Esterase Urine RBC Urine WBC Ur Squamous Epith Cells Urine Bacteria Hyaline Casts Influenza Type A (PCR) Influenza Type B (PCR) RSV RNA Qual (PCR) SARS-CoV-2 RNA (RT-PCR) 03/29/22 03/29/22 03/29/22 15:21 15:21 21:22 MCV MCH MCHC RDW Plt Count MPV Immature Gran % (Auto) Neut % (Auto) Lymph % (Auto) Anson % (Auto) Eos % (Auto) Baso % (Auto) Lymph # (Auto) Anson # (Auto) Eos # (Auto) Baso # (Auto) Abs Immat Gran (auto) Absolute Neuts (auto) Absolute Nucleated RBC Nucleated RBC % (auto) PT INR Anion Gap Estim Creat Clear Calc Estimated GFR Random Glucose Calcium Magnesium Total Bilirubin AST ALT Alkaline Phosphatase Troponin I High Sens < 3.5 5.6 D Total Protein Albumin Urine Color Urine Appearance Urine pH Ur Specific [place] Urine Protein Urine Glucose (UA) Urine Ketones Urine Blood Urine Nitrite Ur Leukocyte Esterase Urine RBC Urine WBC Ur Squamous Epith Cells Urine Bacteria Hyaline Casts Influenza Type A (PCR) NEGATIVE Influenza Type B (PCR) NEGATIVE RSV RNA Qual (PCR) NEGATIVE SARS-CoV-2 RNA (RT-PCR) NEGATIVE 03/29/22 03/30/22 22:03 06:24 MCV MCH MCHC RDW Plt Count MPV Immature Gran % (Auto) Neut % (Auto) Lymph % (Auto) Anson % (Auto) Eos % (Auto) Baso % (Auto) Lymph # (Auto) Anson # (Auto) Eos # (Auto) Baso # (Auto) Abs Immat Gran (auto) Absolute Neuts (auto) Absolute Nucleated RBC Nucleated RBC % (auto) PT INR Anion Gap 12 Estim Creat Clear Calc 61.5 Estimated GFR > 60 Random Glucose 85 Calcium 8.6 D Magnesium Total Bilirubin 0.7 AST 17 ALT 17 Alkaline Phosphatase 70 Troponin I High Sens Total Protein 4.9 L Albumin 3.2 L Urine Color Yellow Urine Appearance Clear Urine pH 7.0 Ur Specific [place] 1.010 Urine Protein Negative Urine Glucose (UA) Negative Urine Ketones Negative Urine Blood Negative Urine Nitrite Negative Ur Leukocyte Esterase Trace H Urine RBC 0-2 Urine WBC 0-5 Ur Squamous Epith Cells 0-2 Urine Bacteria 4+ Hyaline Casts 0-2 Influenza Type A (PCR) Influenza Type B (PCR) RSV RNA Qual (PCR) SARS-CoV-2 RNA (RT-PCR) Assessment and Plan (1) Hypertensive crisis: Status: Acute (2) Hypertension: Status: Acute Plan 81-year-old female with past medical history of hypertension, hypothyroidism, presents to the hospital with complaints of dizziness. #?dizziness improving Likely due to postural hypotension, history not suggestive of BPPV, no hearing impairment, no weakness Noted to have drop in blood pressure with standing, with supine hypertension, pulse remained same CT head unremarkable, chest x-ray unremarkable, UA benign, no electrolyte abnormality Patient treated with IV fluids at present tolerating diet no nausea, no vomiting, no weakness, will DC IV fluids on multiple antihypertensives noted to have elevated blood pressure in the 190s on arrival hydrochlorothiazide- losartan 25/100 held, continue Toprol-XL 100 mg daily, await Nephrology input and follow clinical course closely. On multiple chronic medications including acyclovir that can cause dizziness but seems less likely. #? hypertensive crisis -? presented with blood pressure in the 190 systolic, BP stable at present, continue metoprolol. Will repeat orthostatic studies #? hypothyroidism continue levothyroxine,nl tsh. #? hyperlipidemia continue statin #? history of GERD -? continue PPI ?DVT prophylaxis:? Early ambulation Time Spent With Patient Time: Total time managing care of this patient today ____ minutes. Quality Stroke Does the patient have a stroke diagnosis?: No VTE Prior VTE?: No VTE Risk Level:: Medical - moderate - high VTE Device Contraindication: Treatment Not Indicated VTE Drug Contraindication: N/A - Med Ordered
[2022-03-30 14:50] VITALS: PULSE 57; RESP 13
--- NOTE | 2022-03-30 15:09 | PC.NURSE ---
attempted to call in report to [facility], RN on break, will call back.
--- NOTE | 2022-03-30 15:44 | PC.NURSE ---
RN-RN report given to [facility], pt pending transport.
[2022-03-30 16:30] VITALS: BP 126/51; PULSE 60; RESP 19; TEMP 36.4; O2SAT 94
[2022-03-30] MEDS: Omeprazole 40 MG CAPSULE.DR PO (16:35)
[2022-03-30 19:59] VITALS: BP 119/68; PULSE 57; RESP 19; TEMP 36.5; O2SAT 96
[2022-03-30] MEDS: Atorvastatin Calcium 80 MG TABLET PO (20:41)
[2022-03-31] VITALS (8 sets, daily range): BP systolic 127–155; BP diastolic 52–70; PULSE 54–74; RESP 15–20; TEMP 36.2–36.8; O2SAT 93–97
[2022-03-31] MEDS: 0.9 % Sodium Chloride Flush 3 ML SYRINGE IVFLUSH ×2 (02:13→08:04)
[2022-03-31] MEDS: Omeprazole 40 MG CAPSULE.DR PO ×2 (06:08→16:49)
[2022-03-31] MEDS: Levothyroxine Sodium 50 MCG TABLET PO (06:08)
[2022-03-31] MEDS: Mirabegron 50 MG TAB.ER.24H PO (08:04)
[2022-03-31] MEDS: NaPROXEN 250 MG TABLET PO ×2 (08:05→20:29)
[2022-03-31] MEDS: Folic Acid 1 MG TABLET PO (08:06)
[2022-03-31] MEDS: 0.9 % Sodium Chloride 1,000 ML 100 ML IVCONT (10:48)
--- NOTE | 2022-03-31 14:48 | P.PNIM_ITS ---
Subjective Subjective Date of Service: 03/31/22 Interval History: Complaining of weakness, lightheadedness, unable to ambulate, denies dizziness, complaining of chills on and off denies cough, no shortness of breath, no urinary symptoms, no nausea, no vomiting, no abdominal pain ate breakfast. Review of Systems Review of Systems: Yes all other systems are reviewed and are negative Physical Exam Vital Signs: Vital Signs: Last Vital Signs Temp 97.5 F 03/31/22 11:14 Pulse 55 03/31/22 11:14 Resp 16 03/31/22 11:14 BP 149/67 H 03/31/22 11:14 Pulse Ox 95 03/31/22 11:14 O2 Del Method 03/31/22 11:14 BMI result Body Mass Index 30.4 Const: Other: General? resting comfortably in no acute distress.? Eyes no nystagmus Neck? supple, no JVD. CVS? regular rate rhythm, Respiratory lungs clear to auscultation, no respiratory distress, no wheeze, no rhonchi. Gastrointestinal abdomen soft, nontender, bowel sounds audible, no guarding , no rigidity. Extremities no edema. Neuro nonfocal , speech clear. Skin no rash Psych appropriate affect Objective Data Active Medications Acetaminophen (Acetaminophen 325 Mg Tablet) 650 mg PO Q6H PRN PRN Reason: Pain, Mild (Pain Scale 1-3) Acyclovir (Acyclovir 800 Mg Tablet) 800 mg PO DAILY [facility] Last Admin: 03/31/22 08:04 Dose: 800 mg Documented By: JUSTYNA Atorvastatin Calcium (Atorvastatin Calcium 80 Mg Tablet) 80 mg PO BEDTIME [facility] Last Admin: 03/30/22 20:41 Dose: 80 mg Documented By: ZHANG Folic Acid (Folic Acid 1 Mg Tablet) 1 mg PO SuMoTuThFrSa@0900 [facility] Last Admin: 03/31/22 08:06 Dose: 1 mg Documented By: JUSTYNA Sodium Chloride (Ns) 1,000 mls @ 100 mls/hr IVCONT .Q10H [facility] Stop: 03/31/22 20:14 Last Admin: 03/31/22 10:48 Dose: 100 mls/hr Documented By: JUSTYNA Levothyroxine Sodium (Levothyroxine Sodium 50 Mcg Tablet) 50 mcg PO DAILY@0600 [facility] Last Admin: 03/31/22 06:08 Dose: 50 mcg Documented By: ZHANG Methotrexate (Methotrexate Sodium 2.5 Mg Tablet) 10 mg PO We@0900 [facility] Metoprolol Succinate (Metoprolol Succinate Er 100 Mg Tab.Er.24h) 100 mg PO DAILY [facility]; Protocol Last Admin: 03/31/22 08:06 Dose: Not Given Documented By: JUSTYNA Non-Admin Reason: Decreased Heart Rate Mirabegron (Mirabegron 50 Mg Tab.Er.24h) 50 mg PO DAILY [facility] Last Admin: 03/31/22 08:04 Dose: 50 mg Documented By: JUSTYNA Naproxen (Naproxen 250 Mg Tablet) 250 mg PO BID [facility] Last Admin: 03/31/22 08:05 Dose: 250 mg Documented By: JUSTYNA Non-Formulary Medication (Ganciclovir [Zirgan]) 1 drop EYE-BOTH BEDTIME [facility] Omeprazole (Omeprazole 40 Mg Capsule.Dr) 40 mg PO BID@0630,1630 [facility] Last Admin: 03/31/22 06:08 Dose: 40 mg Documented By: ZHANG Ondansetron HCl (Ondansetron Hcl 4 Mg/2 Ml Vial) 4 mg IVPUSH Q8H PRN PRN Reason: Nausea and Vomiting Sodium Chloride (0.9 % Sodium Chloride Flush 3 Ml Syringe) 3 ml IVFLUSH QSHIFT [facility] Last Admin: 03/31/22 08:04 Dose: 3 ml Documented By: JUSTYNA Labs 03/29/22 15:21 03/30/22 06:24 Assessment and Plan (1) Hypertensive crisis: Status: Acute (2) Hypertension: Status: Acute Plan 81-year-old female with past medical history of hypertension, hypothyroidism, presents to the hospital with complaints of dizziness. #?dizziness Resolved question etiology, complaining of generalized weakness and lightheadedness this morning associated with intermittent chills no fevers Unknown cause of dizziness Likely due to postural hypotension, history not suggestive of BPPV, no hearing impairment, no weakness Noted to have drop in blood pressure with standing, with supine hypertension, pulse remained same CT head unremarkable, chest x-ray unremarkable, UA benign, no electrolyte abnormality tolerating diet no nausea, no vomiting, no weakness, hydrochlorothiazide- losartan 25/100 held, continue Toprol-XL 100 mg daily, await Nephrology input and follow clinical course closely. On multiple chronic medications including acyclovir that can cause dizziness but seems less likely. Due to generalized weakness will give IV fluids 1 L, recheck urinalysis, follow clinical course tele monitor showed no arrhythmia. #? hypertensive crisis -? presented with blood pressure in the 190 systolic, BP stable in last 24 hours with no high blood pressure readings, continue metoprolol home dose. #? hypothyroidism continue levothyroxine,nl tsh. #? hyperlipidemia continue statin #? history of GERD -? continue PPI ?DVT prophylaxis:? Early ambulation Time Spent With Patient Time: Total time managing care of this patient today ____ minutes. Quality Stroke Does the patient have a stroke diagnosis?: No VTE Prior VTE?: No VTE Risk Level:: Medical - moderate - high VTE Device Contraindication: Treatment Not Indicated VTE Drug Contraindication: N/A - Med Ordered
--- NOTE | 2022-03-31 15:32 | MHC.CM.PN ---
per rounds no dc at this time plan remains home no servceis
[2022-03-31 16:06] LABS: Appearance Urine Clear; Color Urine Yellow; Glucose Urine UA Negative (Negative); Leukocyte Esterase Urine Trace (Negative); Nitrite Urine Negative (Negative); PH 6.5 (5.0-9.0); UMIC TRIGGER UACC YES; Urine Blood Negative (Negative); Urine Ketones Negative (Negative); Urine Protein Negative (Neg-Trace)
[2022-03-31 16:08] LABS: RBC Urine 0-2 /HPF (0-2); Squamous Epithelial Cell Urine 0-2 /HPF (0-2); WBC Urine 0-5 /HPF (0-5)
[2022-03-31 16:09] LABS: Bacteria Urine 4+ (None Seen); Hyaline Casts Urine 0-2 /LPF (0-2)
[2022-03-31] MEDS: Atorvastatin Calcium 80 MG TABLET PO (20:29)
[2022-04-01] VITALS: BP 150/80; PULSE 60; RESP 20; TEMP 37.1; O2SAT 94
[2022-04-01] MEDS: 0.9 % Sodium Chloride Flush 3 ML SYRINGE IVFLUSH ×2 (00:14→09:02)
[2022-04-01 03:49] VITALS: BP 150/60; PULSE 62; RESP 20; TEMP 36.8; O2SAT 96
[2022-04-01] MEDS: Levothyroxine Sodium 50 MCG TABLET PO (05:45)
[2022-04-01] MEDS: Omeprazole 40 MG CAPSULE.DR PO (05:45)
[2022-04-01 07:34] VITALS: BP 149/68; PULSE 63; RESP 18; TEMP 36.6; O2SAT 96
[2022-04-01] MEDS: Folic Acid 1 MG TABLET PO (09:02)
[2022-04-01] MEDS: Mirabegron 50 MG TAB.ER.24H PO (09:02)
[2022-04-01] MEDS: Metoprolol Succinate ER 100 MG TAB.ER.24H PO (09:02)
[2022-04-01] MEDS: NaPROXEN 250 MG TABLET PO (09:03)
[2022-04-01 10:40] VITALS: BP 135/68; PULSE 65
--- NOTE | 2022-04-01 10:54 | MHC.CM.PN ---
pt dcd home no skilled services ordered by
[2022-04-01 11:04] VITALS: BP 141/69; O2SAT 96
--- NOTE | 2022-04-01 13:02 | PM.DS ---
DS: Providers Provider Date of Service: 04/01/22 Date of admission: 03/29/22 22:54 Primary care physician: Cleo Fierro MD Consults: 03/29/22 22:54 Consult to Nephrology Routine Consulting Provider: [facility] Reason for consultation: postural hypertension, symptomatic orthostatic hypotension Has provider been notified: No DS: Diagnosis Discharge Diagnosis (1) Hypertensive crisis: Status: Acute (2) Hypertension: Status: Acute DS: Summary Hospital Course Hospital Course: Date of Service: 03/29/22 Chief Complaint: dizziness ?81-year-old female past medical history of hypertension, IBS, hyperlipidemia, history of cerebral aneurysm repair, as well as? eye surgery with subsequent infection, currently on chronic antiviral, history of? palpitations, presents to the hospital with complaints of dizziness.? Patient reports that every time she gets up from a seated position, or goes down to pick something off the floor, she has significant dizziness.? She reports no chest pain, no palpitations, no abdominal pain nausea vomiting, no diarrhea constipation, no urinary symptoms and no lower extremity edema.? On arrival to the ED patient hemodynamically stable? with blood pressure of 196/80 to orthostatic vitals positive with blood pressure dropping from? 170 systolic coulee to 150s on standing Labs are significant for WBC count of 6.6, otherwise unremarkable UA negative, viral serology negative Has CT shows no acute intracranial pathology, chest x-ray negative. Hospital course: 81-year-old female with past medical history of hypertension, hypothyroidism, presents to the hospital with complaints of dizziness. #?Dizziness,? Resolved unknown cause of dizziness likely due to postural hypotension, history not suggestive of BPPV, No hearing impairment, no infection CT head unremarkable, chest x-ray unremarkable, UA benign, no electrolyte abnormality, no arrhythmia , patient treated with IV fluid and was continued on Toprol-XL 100 mg, hydrochlorothiazide- losartan 25/100 discontinued, blood pressure was monitored closely, seemed to be stable No further drop of blood pressure with standing, pulse remains stable patient has been started on low-dose losartan 25 mg recommend outpatient blood pressure monitoring. #? hypertensive crisis? presented with blood pressure in the 190 systolic, BP stable in last 24 hours with no high blood pressure readings, continue metoprolol home dose and low-dose losartan 25 mg daily. #? hypothyroidism? continue levothyroxine, tsh within normal range. #? hyperlipidemia continue statin #? history of GERD -? continue PPI Time Spent with Patient Time attestation: Total time managing care of this patient today ____ minutes. Discharge coordination time: Greater than 30 minutes Quality: Safe Use of Opioids Does Pt have an Active Cancer Diagnosis on the Problem List?: No Quality: Stroke Does the patient have a stroke diagnosis?: No Physical Exam Vital Signs: Vital Signs: Last Vital Signs Temp 97.9 F 04/01/22 07:34 Pulse 65 04/01/22 10:40 Resp 18 04/01/22 07:34 BP 141/69 H 04/01/22 11:04 Pulse Ox 96 04/01/22 11:04 O2 Del Method 04/01/22 11:04 BMI result Body Mass Index 30.4 Const: Other: General? resting comfortably in no acute distress.? Eyes no nystagmus Neck? supple, no JVD. CVS? regular rate rhythm, Respiratory lungs clear to auscultation, no respiratory distress, no wheeze, no rhonchi. Gastrointestinal abdomen soft, nontender, bowel sounds audible, no guarding , no rigidity. Extremities no edema. Neuro nonfocal , speech clear. Skin no rash Psych appropriate affect DS: Data Data Completed and Pending Labs on day of discharge: Laboratory Results - last 24 hr 03/31/22 15:50 Urine Color Yellow Urine Appearance Clear Urine pH 6.5 Ur Specific [place] 1.010 Urine Protein Negative Urine Glucose (UA) Negative Urine Ketones Negative Urine Blood Negative Urine Nitrite Negative Ur Leukocyte Esterase Trace H Urine RBC 0-2 Urine WBC 0-5 Ur Squamous Epith Cells 0-2 Urine Bacteria 4+ Hyaline Casts 0-2 Discharge Plan Discharge Anticipated Discharge Date/Time: 04/01/22 10:42 Patient Disposition: Home, Self-Care Discharge Diagnosis: Dizziness Hypertensive crisis Referrals: Cleo Fierro MD [Primary Care Provider] - 1 Week Discharge Medications: New losartan 25 mg tablet 25 mg PO DAILY Qty: 30 0RF Continued acyclovir 800 mg tablet 1 tab PO DAILY meloxicam 7.5 mg tablet 1 tab PO DAILY Zirgan 0.15 % gel 1 drp ophthalmic (eye) BEDTIME Myrbetriq 50 mg tablet extended release 24 hr 1 tab PO DAILY metoprolol succinate 100 mg tablet extended release 24 hr 100 mg PO DAILY rosuvastatin 20 mg tablet 20 mg PO BEDTIME levothyroxine 50 mcg capsule 50 mcg PO DAILY@0600 omeprazole 20 mg capsule,delayed release(DR/EC) 40 mg PO BID@0630,1630 methotrexate sodium 2.5 mg tablet 10 mg PO WE folic acid 1 mg tablet 1 mg PO SUMOTUTHFRSA@0900 Discontinued losartan-hydrochlorothiazide 100-25 mg tablet 1 tab PO DAILY Discharge Orders: Discharge Order (Routine); Ordered 04/01/22 Ordered By: Tucker Reynolds Diet: Advance to usual diet Activity on Discharge: As tolerated Stand Alone Forms: Patient Portal Discharge page Care Plan Goals: Monitor blood pressure/return to check with recurrent episodes of lightheadedness or dizziness Stop losartan/hydrochlorothiazide Continue metoprolol and you are started on losartan 25 mg low-dose Health Concerns: Continue all home medications as above Plan of Treatment: Outpatient follow-up with primary care physician Assessment: As above
== END 2022-04-01 13:20 | disposition home or self-care (01) ==
LOC: HO.ED 03-30 02:26 → HO.EDOVER 03-30 02:39 → HO.IMC 03-30 15:04
PROVIDERS: Physician Assistant; Physician Assistant Medical; Admitting Provider Internal Medicine; Emergency Provider Internal Medicine; PCP Internal Medicine; Visit Provider Hospitalist
DX: R42 Dizziness and giddiness (principal); I16.0 Hypertensive urgency; I95.1 Orthostatic hypotension; I10 Essential (primary) hypertension; Z20.822 Contact with and (suspected) exposure to COVID-19; Z20.828 Contact with and (suspected) exposure to other viral communicable diseases; E03.9 Hypothyroidism, unspecified; E78.5 Hyperlipidemia, unspecified; K21.9 Gastro-esophageal reflux disease without esophagitis; Z79.02 Long term (current) use of antithrombotics/antiplatelets; Z79.899 Other long term (current) drug therapy
CPT/HCPCS: 0241U; 36415; 70450; 71046; 80053; 81001; 81003; 83735; 84484; 85025; 85610; 93005; 96360; 96361; 99221; 99285

== ENCOUNTER 2022-09-17 07:52 | Outpatient (REF) | payer MEDICARE, SELFPAY ==
[2022-09-17 11:33] LABS: MANUAL DIFF FLAG NO
[2022-09-17 11:47] LABS: Basophils Percent Auto 0.6 % (0-2); Eosinophils Absolute Auto 0.1 X10*3/uL (0.0-0.4); Eosinophils Percent Auto 1.5 % (0-4); Hematocrit 38.5 % (37.0-47.0); Hemoglobin 12.4 g/dl (12.0-16.0); Imm Gran Abs Auto 0.01 X10*3/uL (0.00-0.03); Imm Gran Pct Auto 0.2 % (0.0-0.4); Lymphocytes Absolute Auto 1.7 X10*3/uL (1.2-4.9); Lymphocytes Percent Auto 35.8 % (20-40); Mean Corpuscular HGB Conc 32.2 g/dl (31.0-35.0); Mean Corpuscular Hemoglobin 32.6 pg (27.0-33.0); Mean Corpuscular Volume 101.3 fL (80.0-98.0); Mean Platelet Volume 9.4 fL (9.4-12.3); Monocytes Absolute Auto 0.4 X10*3/uL (0.1-1.2); Monocytes Percent Auto 8.3 % (2-11); Neutrophils Absolute Auto 2.5 x10*3/uL (2.0-8.3); Neutrophils Percent Auto 53.6 % (45-73); Platelet Count 200 X10*3/uL (160-400); Red Cell Distribution Width 13.8 % (11.0-16.0); White Blood Count 4.7 X10*3/uL (4.8-10.8)
[2022-09-17 12:14] LABS: Alanine Aminotransferase 20 U/L (0-31); Alkaline Phosphatase 91 U/L (39-117); Anion Gap 14 (12-20); Aspartate Amino Transferase 18 U/L (5-31); Bilirubin Total 0.6 mg/dL (0.0-1.0); Blood Urea Nitrogen 18 mg/dL (9-16); Calcium 9.5 mg/dL (8.4-10.2); Carbon Dioxide 24 mmol/L (22-29); Chloride 108 mmol/L (96-108); Cholesterol 152 mg/dL; Estimated Glomerular Filt Rate > 60; Glucose Random 93 mg/dL (60-115); HDL Cholesterol 51 mg/dL; LDL Cholesterol Calculated 81 mg/dl; Potassium 4.3 mmol/L (3.3-5.1); Sodium 142 mmol/L (135-145); Total Protein 6.6 g/dL (6.5-8.0); Triglycerides 103 mg/dL
[2022-09-17 12:34] LABS: Thyroid Stimulating Hormone 2.72 uIU/mL (0.32-4.0); Vitamin D 25-OH Total 32.8 ng/mL (>30)
[2022-09-17 12:38] LABS: Vitamin B12 465 pg/mL (200-900)
== END 2022-09-17 07:53 | disposition home or self-care (01) ==
LOC: HO.HMGCLDS 07:52
PROVIDERS: PCP Internal Medicine; Visit Provider Internal Medicine
DX: E03.8 Other specified hypothyroidism (principal); E78.00 Pure hypercholesterolemia, unspecified; H81.11 Benign paroxysmal vertigo, right ear; I10 Essential (primary) hypertension
CPT/HCPCS: 36415; 80053; 80061; 82306; 82607; 84443; 85025

== ENCOUNTER 2023-02-03 14:59 | Outpatient (REF) | payer MEDICARE, SELFPAY | END 2023-02-03 15:00 | disposition home or self-care (01) | LOC: HO.MAMMO 14:59 | PROVIDERS: PCP Internal Medicine; Visit Provider Internal Medicine | DX: Z12.31 Encounter for screening mammogram for malignant neoplasm of breast (principal) | CPT/HCPCS: 77063; 77067 ==

== ENCOUNTER → 2023-02-03 15:15 | Outpatient (BNV) | payer MEDICARE, SELFPAY | PROVIDERS: PCP Internal Medicine; Visit Provider Radiology Diagnostic Radiology | DX: Z12.31 Encounter for screening mammogram for malignant neoplasm of breast (principal) | CPT/HCPCS: 77063; 77067 ==

== ENCOUNTER 2023-03-13 08:02 | Outpatient (REF) | payer MEDICARE, SELFPAY ==
[2023-03-13 12:21] LABS: Alanine Aminotransferase 14 U/L (0-31); Albumin Level 3.8 g/dL (3.5-5.0); Alkaline Phosphatase 83 U/L (39-117); Anion Gap 13 (12-20); Aspartate Amino Transferase 18 U/L (5-31); Bilirubin Total 0.6 mg/dL (0.0-1.0); Blood Urea Nitrogen 19 mg/dL (9-16); Calcium 9.1 mg/dL (8.4-10.2); Carbon Dioxide 27 mmol/L (22-29); Chloride 107 mmol/L (96-108); Estimated Glomerular Filt Rate > 60; Glucose Random 90 mg/dL (60-115); Potassium 4.3 mmol/L (3.3-5.1); Sodium 143 mmol/L (135-145); Total Protein 6.4 g/dL (6.5-8.0)
[2023-03-13 12:43] LABS: Thyroid Stimulating Hormone 2.72 uIU/mL (0.32-4.0)
== END 2023-03-13 08:03 | disposition home or self-care (01) ==
LOC: HO.HMGCLDS 08:02
PROVIDERS: PCP Internal Medicine; Visit Provider Internal Medicine
DX: E03.8 Other specified hypothyroidism (principal); E78.00 Pure hypercholesterolemia, unspecified; G47.33 Obstructive sleep apnea (adult) (pediatric); I10 Essential (primary) hypertension
CPT/HCPCS: 36415; 80053; 84443

== ENCOUNTER 2023-09-18 06:12 | Outpatient (REF) | payer MEDICARE, SELFPAY ==
[2023-09-18 10:01] LABS: MANUAL DIFF FLAG NO
[2023-09-18 10:20] LABS: Basophils Percent Auto 0.4 % (0-2); Eosinophils Absolute Auto 0.1 X10*3/uL (0.0-0.4); Eosinophils Percent Auto 1.4 % (0-4); Hematocrit 39.6 % (37.0-47.0); Hemoglobin 13.2 g/dl (12.0-16.0); Imm Gran Abs Auto 0.01 X10*3/uL (0.00-0.03); Imm Gran Pct Auto 0.2 % (0.0-0.4); Lymphocytes Absolute Auto 2.1 X10*3/uL (1.2-4.9); Lymphocytes Percent Auto 42.1 % (20-40); Mean Corpuscular HGB Conc 33.3 g/dl (31.0-35.0); Mean Corpuscular Hemoglobin 33.6 pg (27.0-33.0); Mean Corpuscular Volume 100.8 fL (80.0-98.0); Mean Platelet Volume 9.2 fL (9.4-12.3); Monocytes Absolute Auto 0.4 X10*3/uL (0.1-1.2); Monocytes Percent Auto 8.8 % (2-11); Neutrophils Absolute Auto 2.4 x10*3/uL (2.0-8.3); Neutrophils Percent Auto 47.1 % (45-73); Platelet Count 194 X10*3/uL (160-400); Red Blood Count 3.93 X10*6/uL (4.20-5.50); Red Cell Distribution Width 14.7 % (11.0-16.0)
[2023-09-18 10:44] LABS: Alanine Aminotransferase 16 U/L (0-31); Albumin Level 3.8 g/dL (3.5-5.0); Alkaline Phosphatase 84 U/L (39-117); Anion Gap 12 (12-20); Aspartate Amino Transferase 18 U/L (5-31); Bilirubin Total 0.7 mg/dL (0.0-1.0); Blood Urea Nitrogen 15 mg/dL (9-16); Calcium 9.1 mg/dL (8.4-10.2); Carbon Dioxide 26 mmol/L (22-29); Chloride 108 mmol/L (96-108); Cholesterol 144 mg/dL (<200); Estimated Glomerular Filt Rate > 60; Glucose Random 102 mg/dL (60-115); HDL Cholesterol 51 mg/dL (>40); LDL Cholesterol Calculated 76 mg/dL (<100); Potassium 3.7 mmol/L (3.3-5.1); Sodium 142 mmol/L (135-145); Total Protein 6.4 g/dL (6.5-8.0); Triglycerides 88 mg/dL (<150)
[2023-09-18 11:00] LABS: Thyroid Stimulating Hormone 3.16 uIU/mL (0.32-4.0)
== END 2023-09-18 06:13 | disposition home or self-care (01) ==
LOC: HO.HMGCLDS 06:12
PROVIDERS: PCP Internal Medicine; Visit Provider Internal Medicine
DX: E03.9 Hypothyroidism, unspecified (principal); E78.00 Pure hypercholesterolemia, unspecified; G47.33 Obstructive sleep apnea (adult) (pediatric); I10 Essential (primary) hypertension
CPT/HCPCS: 36415; 80053; 80061; 84443; 85025

== ENCOUNTER 2024-03-04 13:00 | Outpatient (RCR) | payer MEDICARE, SELFPAY ==
[2024-02-24 09:48] VITALS: BP 158/72; PULSE 64; O2SAT 98
== END 2024-04-01 08:30 | disposition home or self-care (01) ==
LOC: HO.PTCHIC 13:00
PROVIDERS: PCP Internal Medicine; Visit Provider Internal Medicine
DX: H81.11 Benign paroxysmal vertigo, right ear (principal); G47.33 Obstructive sleep apnea (adult) (pediatric)
CPT/HCPCS: 95992; 97110; 97162

== ENCOUNTER 2024-04-20 10:25 | Outpatient (REF) | payer MEDICARE, SELFPAY ==
--- OUTSIDE RECORDS SUMMARY | 2024-04-20 12:15 | XMS_ITS | Data Portability ---
Author Organization [facility], [address] Address [address] [place] [address] Care Team Providers Care Aquaculture Program Director Name Role Phone LAURA ROBERT Primary Care Provider Assessment No assessment recorded. Plan of Treatment Reminders Order Date Submit Date Provider Last Modified By Organization Details Last Modified Time Details Appointments None recorded. Lab None recorded. Referral emergency medicine referral - getting dizzy , unsteady gait, abnormal EKG. Need to rule out acute LA. need further evaluation and treatment. 2022 023 [email or web address] 26 [facility] Emergency Department, [address] [place], [address], 12:50:52 Procedures None recorded. Surgeries None recorded. Imaging electrocard iogram 2022 023 [email or web address] 106 _[facility], [address] [place], [address], 14:10:57 Medication Orders None recorded. Patient TargetsNo targets recorded. Patient Instructions Encounter Date Encounter Id Patient Instructions Last Modified By Organization Details Last Modified Time 03/29/2022 [id number] dizziness: care instructions [email or web address] Not available 03/29/2022 13:40:09 Rarely, dizzines s can be a symptom of a more serious neurological problem such as a stroke, brain hemorrhage or multiple sclerosis. In such cases, other neurological symptoms are usually present, such as double vision, slurred speech, facial weakness or numbness, limb coordination, or severe balance problems. If any of these symptoms occur or your current symptoms change or worsen go directly to the closet ER, or call 911. [email or web address] Not available 03/29/2022 13:38:48 Reason for Referral Emergency Medicine Referral for Dizziness of unknown cause getting dizzy , unsteady gait, abnormal EKG. Need to rule out acute LA. need further evaluation and getting dizzy , unsteady gait, abnormal EKG. Need to rule out acute LA. need further evaluation and treatment. Referring Physician: Stas Angeles, Urgent Care, Encounter Date: 03/29/2022 Results Created Date Observation Date Name Description Value Unit Range Abnormal Flag Note LastModifiedBy Organization Detail LastModifiedTime 03/29/19 23 03/29/2022 elect percy casasgr am No observ ation record ed. [email or web address] [id number], [place], [address], 03/29/2022 13:41:13 Result Notes None recorded. Problems Name Problem SNOMED Code Status Onset Date Resolution Date Notes Provider Name and Address Organization Details Recorded Time Overactive urinary bladder 217368637 Active 2022 ISAAC SOLORIO null, PA - [facility] 3 12:52:51 Hypertensive disorder 48137878 Active 2022 ISAAC SOLORIO null, PA - [facility] 3 12:52:59 Hypercholester olemia 85207564 Active 2022 ISAAC SOLORIO null, PA - [facility] 3 12:53:09 Gastroesophage al reflux disease 785544253 Active 2022 ISAAC SOLORIO null, PA - [facility] 3 12:53:15 Hypothyroidism 39556641 Active 2022 ISAAC SOLORIO null, PA - [facility] 3 12:53:56 Sciatica 80253709 Active 2022 ISACA SOLORIO null, PA - [facility] 3 12:54:20 Problem Notes None recorded. Procedures Surgical History Date Name Laterality Status Provider Name and Address Organization Details Recorded Time repair of esophagus completed PILLO SOLORIO PA - [facility] 03/29/2022 12:55:38 repair of aneurysm by wiring completed ISAAC SOLORIO PA - [facility] 03/29/2022 12:56:10 tonsillectomy completed ISAAC SOLORIO PA - [facility] 03/29/2022 12:56:22 adenomyomectomy completed ISAAC SOLORIO PA - [facility] 03/29/2022 12:56:31 partial hysterectomy completed ISAAC SOLORIO PA - [facility] 03/29/2022 12:56:54 Imaging Results Imaging Date Name Status LastModified by Organization Details LastModified Time 03/29/2022 electrocardiogram completed [email or web address] [id number], [place], [address], 03/29/2022 13:41:13 Procedure Notes None recorded. Medical Equipment None Reported. Allergies No known drug allergies Medications Name Sig Start Date Stop Date Status Note LastModified by Organization Details LastModified Time oxybutynin chloride ER 10 mg tablet,exte nded release 24 hr TAKE 1 TABLET BY MOUTH DAILY FOR OVERACTIV E BLADDER active Not Available Not Available No t Available metoprolol succinate ER 100 mg tablet,exte nded release 24 hr TAKE 1 TABLET BY MOUTH EVERY DAY active Not Available Not Available No t Available acyclovir 800 mg tablet TAKE 1 TABLET BY MOUTH DAILY active Not Available Not Available No t Available meloxicam 7.5 mg tablet TAKE 1 TABLET BY MOUTH EVERY DAY active Not Available Not Available No t Available losartan 100 mg-hydrochl orothiazide 25 mg tablet TAKE 1 TABLET BY MOUTH EVERY DAY active Not Available Not Available No t Available famciclovir 250 mg tablet TAKE 1 TABLET BY MOUTH TWICE DAILY 03/29 completed Not Available Not Available Not Available prednisolon e acetate 1 % eye drops,suspe nsion PLACE 1 DROP INTO THE LEFT EYE FOUR TIMES DAILY TAPERED BY ONE DROP EACH WEEK active Not Available Not Available No t Available methotrexat e sodium 2.5 mg tablet TAKE 4 TABLETS BY MOUTH ONCE WEEKLY active Not Available Not Available No t Available levothyroxi ne 50 mcg tablet TAKE 1 TABLET BY MOUTH EVERY DAY active Not Available Not Available No t Available Javier 128 5 % eye drops INSTILL 1 DROP INTO THE LEFT EYE EVERY EVENING active Not Available Not Available No t Available omeprazole 20 mg capsule,del ayed release TAKE 1 CAPSULE BY MOUTH TWICE DAILY active Not Available Not Available No t Available folic acid 1 mg tablet TAKE 1 TABLET BY MOUTH EVERY DAY. EXCEPT THE DAY WHEN YOU TAKE METHOTREX ATE active Not Available Not Available No t Available dicyclomine 10 mg capsule TAKE 1 TO 2 CAPSULES BY MOUTH THREE TIMES DAILY NEEDED FOR ABDOMINAL CRAMPS OR BLOATING active Not Available Not Available No t Available rosuvastati n 20 mg tablet TAKE 1 TABLET BY MOUTH AT BEDTIME active Not Available Not Available No t Available Zirgan 0.15 % eye gel APPLY TO THE LEFT EYE EVERY NIGHT AT BEDTIME active Not Available Not Available No t Available Zioptan (PF) 0.0015 % eye drops in a dropperette INSTILL 1 DROP IN BOTH EYES EVERY NIGHT AT BEDTIME active Not Available Not Available No t Available Myrbetriq 50 mg tablet,exte nded release TAKE 1 TABLET BY MOUTH EVERY DAY active Not Available Not Available No t Available BinaxNOW COVID-19 Ag Self Test kit FOLLOW PACKAGE DIRECTION S 03/29 completed Not Available Not Available Not Available Vitals Date Recorded Body height Body mass index (BMI) Body weight Body temperature Oxygen saturation Oxygen saturation in Arterial blood by Pulse oximetry Heart rate Respiratory rate Systolic blood pressure Diastolic blood pressure Provider Name and Address Organization Details Last Updated DateTime 3 149.86 cm 31.5 kg/m2 40706.4 1 g 97 [degF] 99 % 99 % 67 /min 16 /min 144 mm[Hg] 84 mm[Hg] ISAAC SOLORIO PA - [facility] 3 12:59:06 Social History Question Answer Notes LastModified by Organizat ion Details LastModified Time Tobacco Smoking Status Never Smoker ISAAC OSMIN harrison, PA - [facility] 03/29/2022 12:55:11 What Is Your Level Of Alcohol Consumption? None [email or web address] Information not available 03/29/2022 Do You Use Any Illicit Or Recreational Drugs? No [email or web address] Information not available 03/29/2022 Have You Recently Traveled Abroad? No [email or web address] Information not available 03/29/2022 Do You Or Have You Ever Used Any Other Forms Of Tobacco Or Nicotine? No [email or web address] Information not available 03/29/2022 Sex: Unknown Functional Status None recorded. Mental Status None recorded. Family History Relationship Description Onset Age of this Age Resolved Age Notes LastModified by Organization Details LastModified Time Father Heart disease [email or web address] Not available 2022 12:54:51 Mother Heart disease [email or web address] Not available 2022 12:54:51 Brother Heart disease [email or web address] Not available 2022 12:54:51 Medical History No medical history recorded. Gynecological HistoryNo gynecological history recorded. Obstetrics History GPAL:G 0 P 0 0 0 0 Past Encounters Encounter ID Performer Location Encounter Start Date Encounter Closed Date Diagnosis/Indication Diagnosis SNOMED-CT Code Diagnosis ICD10 Code Diagnosis Note [id number] [address] [place] [address] 07/01/2016 09:47:57 07/01/2016 10:39:51 [id number] [address] [place] [address] 06/11/2015 09:58:42 06/11/2015 11:02:03 [id number] [address] [place] [address] 12/24/2017 11:01:50 12/24/2017 12:32:46 [id number] St[place] [address] [place] [address] 03/29/2022 12:40:36 03/29/2022 14:10:56 Dizziness of unknown cause 096889143 R42 Electrocar diogram abnormal 998120904 R94.31 Gwen like conduction delay. Health Concerns Section Related Observation LastModified by Organization Detai ls LastModified Time None Recorded Concern Status LastModified by Organization Details LastModified Time None Recorded Advance Directives Directive None Recorded Payers Encounter Date Sequence Insurance Name Policy Number Policy Gr Covered Member ID Gr Member ID Guarantor Name 06/11/2015 1 [place] [employer] Laura J Desorcy [id number] Laura J Desorcy 06/11/2015 2 [place] [id number] Laura J Desorcy [id number] Laura J Desorcy 07/01/2016 1 [place] Laura J Desorcy [id number] Laura J Desorcy 07/01/2016 2 [place] [id number] Laura J Desorcy [id number] Laura J Desorcy 12/24/2017 1 [place] Laura J Desorcy [id number] Laura J Desorcy 12/24/2017 2 [place] [id number] Laura J Desorcy [id number] Laura J Desorcy 03/29/2022 1 [place] Laura J Desorcy [id number] Laura J Desorcy 03/29/2022 2 [facility] [id number] Laura J Desorcy [id number] Laura J Desorcy Notes Date Note Type Note Provider Name and Address Organization Details Recorded Time 03/29/2022 text/html Dizziness UCReported bypatient.travelInf ormation obtained from patient; Patient arrived at Urgent Care ambulatory; learning styles: auditory Quality:cannot identify Severity:cant support self when standing Context:non-smoker; positional;history of high Blood Pressure Modifying Factors:going from sit to stand; change in position Associated Symptoms:no blurred vision; no foggy vision; no blindness; no double vision; no spots in field of vision; no eye pain; no hearing loss; no difficulty understanding speech; no ear discharge; no ringing in the ears; no pressure in ears; no noise in the ears; no feelings of fullness in the ears; no earache; no unsteadiness; no anxiety or unsteady feelings; no syncope; no loss of consciousness; no headache; no nausea; no vomiting; no facial numbness; no difficulty with speech; no dysphagia; no tingling around the mouth; normal stools;head pressure;weak limbs Stasayla Angeles NP [address] [place], [address], [place] - [facility] 03/30/2022 08:05:55 OBGyn Episode No OBEpisode recorded.
--- OUTSIDE RECORDS SUMMARY | 2024-04-20 12:15 | XMS_ITS | Patient Health Record ---
Author Organization [facility] Address [address] [place] [address] Care Team Providers Care Director Of Creative Services Name Role Phone Cleo Fierro Primary Care Provider José Miguel John Unavailable [phone] Allergies Allergen (clinical drug ingredient) Drug/Non Drug Allergy documented on EMR Reaction Allergy Type Onset Date Status Lactose intolerant (uncoded) Unknown Allergy Active Wheat wheat (uncoded) Unknown Allergy Acti ve Reason For Referral No Information Medications Medication SIG (Take, Route, Frequency, Duration) Notes Start Date End Date Status Tolterodine Tartrate ER 4 MG 1 capsule Orally Once a day Unknown prednisoLONE Acetate 1 % INSTILL 1 DROP INTO LEFT EYE ONCE DAILY Ophthalmic for 75 Unknown Simbrinza 1-0.2 % INSTILL 1 DROP INTO EACH EYE TWICE DAILY Ophthalmic for 90 Unknown Durezol 0.05 % 1 drop into affected eye Ophthalmic Twice a day for 7 day(s) Unknown Famciclovir 500 MG 1 tablet Orally Twic e a day for 10 day(s) Active Dicyclomine HCl 10 MG TAKE 1 TO 2 CAPSUL ES BY MOUTH THREE TIMES DAILY NEEDED FOR ABDOMINAL CRAMPS/BLOATING for 10 Active amLODIPine Besylate 2.5 MG 1 tablet Oral ly Once a day Unknown Metoprolol Tartrate 100 MG 1 tablet with food Orally once a day Active Oxervate 0.002 % 1 drop into affected eye at 2 hour intervals Ophthalmic Six times a day Unknown Losartan Potassium 100 MG 1 tablet Orall y Once a day Active predniSONE 5 MG 1 tablet Orally Once a day for 30 day(s) Unknown Levothyroxine Sodium 50 MCG 1 tablet on an empty stomach in the morning Orally Once a day Active Zirgan 0.15 % 1 drop into the lowe r eyelid of affected eye until corneal ulcer heals Ophthalmic three times a day Unknown Omeprazole 20 MG TAKE 1 CAPSULE BY [facility] TWICE DAILY for 30 Active Rosuvastatin Calcium 20 MG 1 tablet Oral ly Once a day Active Ocuvite Unknown Immunizations Vaccine Route Administration Date Status Comme nts Influenza Unknown 10/18/2015 Administered Flu vaccine no Preserv 3 and > Unknown 11/18/2016 Admin istered Influenza Unknown 10/17/2017 Administered Influenza Unknown 10/17/2018 Administered Influenza Unknown 11/27/2020 Administered Problems Problem Type SNOMED Code ICD Code Onset Dates Problem Status W/U Status Risk Notes Problem 428117357 Change in bowel habits (R19.4) Active confirmed Problem 969051666 Irritable bowel syndrome with diarrhea (K58.0) Active confirmed Problem 984754697 Fecal smearing (R15.1) Active confirmed Problem 66412320 Achalasia (K22.0) Active confirmed Problem 88250974 Pharyngoesophage al dysphagia (R13.14) Active confirmed Problem 957790809 Abnormal barium swallow (R93.3) Active confirmed Problem 46342978 Diarrhea, unspecified type (R19.7) Active confirmed Problem 90741386 Incontinence of feces, unspecified fecal incontinence type (R15.9) Active confirmed Problem 44276437 Esophageal dysph agia (R13.10) Active confirmed Problem Diverticulosis of colon (451993366) Diverticulosis of colon (K57.30) Active confirmed Plan Of Treatment Pending Test Test Name Order Date Esophageal Motility study 07/13/2018 XR BARIUM SWALLOW-ESOPHAGUS 07/28/2013 XR BARIUM SWALLOW-ESOPHAGUS 08/05/2017 Pathology 04/29/2021 Future Test Test Name Order Date UPPER GI ENDOSCOPY BALLOOON DILATION OF ESOPH 01/28/2012 UPPER GI ENDOSCOPY BALLOOON DILATION OF ESOPH 08/09/2017 COLONOSCOPY 03/26/2021 Insurance Providers Payer Name Payer Address Payer Phone Subscriber Number Group Number Insured Name Patient Relationship to Insured Coverage Start Date Coverage End Date MEDICARE OF [place] [address] [place] [address] [id number] FRANCHESCA LEW Self - patient is the insured [employer] ATT[employer] CLAIMS [address] [place] [address] [id number] FRANCHESCA LEW Self - patient is the insured Medical (General) History Medical History History ICD Code Colonoscopy 03-05-2010 and 2001-negative for polyps and colitis GERD with history of mild es ophageal strictures-s/p balloon dilations in 2008 and 2009 Hypertension Hyperlipidemia Hypothyroidism Denies IL,DM,CVA,Lung disease,renal dise ase IBS--neg. celiac disease labs in 02/2010 Cerebral aneurysm-Rx'd angiographically EGD in 02/2012--no stricture- EGJ dilated with an 18mm balloon-no real effect--no sig. HH--Bx neg for eosinophilic esophagitis Achalasia based on motility study in 2013---never treated-- but asymptomatic as of 07/2016--saw Dr. Hoskins in 2014 who felt that her symptoms didn't warrant a POEM or Achalasia balloon dilation at that time Urinary incontinence--has an Interstim i n place EGD 07/2017-small HH, tortuou s esophagus, biopsies negative for eosinophilic esophagitis--dilated with an 18-20mm ballon Achalasia-scheduled for the POEM procedure in 02/[address] Rayo--performed successfully Surgical History Surgery Date(Month/Year) Hysterectomy Repair of cerebral aneurysm angiographic ally approx. 1996 Interstim for the bladder Eye godamcj-fexufmk-ryljcgvviavlr of inf ection after surgery 06/2017
--- OUTSIDE RECORDS SUMMARY | 2024-04-20 12:15 | XMS_ITS | Clinical Summary ---
Author Organization [facility] Facility Address [address] [place] [address] Care Team Providers Care Bench Molder Apprentice Name Role Phone Cleo Fierro MD Primary Care Provider Social History Tobacco Use Types Packs/Day Years Used Date Smoking Tobacco: Never Assessed Comments Unknown Sex and Gender Information Value Date Recorded Sex Assigned at Not on file Legal Sex Female 2:06 PM EST Gender Identity Not on file Sexual Orientation Not on file Plan of Treatment Health Maintenance Due Date Last Done Comments Pneumococcal Vaccine: 65+ Ye ars (1 of 1 - PCV) 2005 Influenza Vaccine (#1) 2023 Hepatitis B Vaccine Aged Out No longe r eligible based on patient's age to complete [place] [id number] MEDIC[address] [facility] [place] [address] MEDICARE [facility] Care Teams Bench Molder Apprentice Relationship Specialty Start Date End Date Cleo Fierro MD [address] [place] [address] PCP - General Internal Medicine 04/10/22
[2024-04-20 14:13] LABS: Alanine Aminotransferase 22 U/L (0-31); Alkaline Phosphatase 81 U/L (39-117); Anion Gap 12 (12-20); Aspartate Amino Transferase 32 U/L (5-31); Bilirubin Total 0.6 mg/dL (0.0-1.0); Blood Urea Nitrogen 19 mg/dL (9-16); Calcium 9.4 mg/dL (8.4-10.2); Carbon Dioxide 28 mmol/L (22-29); Chloride 107 mmol/L (96-108); Estimated Glomerular Filt Rate > 60; Glucose Random 98 mg/dL (60-115); Potassium 3.9 mmol/L (3.3-5.1); Sodium 143 mmol/L (135-145); Total Protein 7.1 g/dL (6.5-8.0)
[2024-04-20 14:15] LABS: Thyroid Stimulating Hormone 5.88 uIU/mL (0.32-4.0)
[2024-04-20 14:39] LABS: Folate 14.5 ng/mL (> or = 4.0); Vitamin B12 642 pg/mL (200-900)
== END 2024-04-20 10:26 | disposition home or self-care (01) ==
LOC: HO.HMGCLDS 10:25
PROVIDERS: PCP Internal Medicine; Visit Provider Internal Medicine
DX: D51.8 Other vitamin B12 deficiency anemias (principal); E03.8 Other specified hypothyroidism; E78.00 Pure hypercholesterolemia, unspecified; H81.11 Benign paroxysmal vertigo, right ear; I10 Essential (primary) hypertension
CPT/HCPCS: 36415; 80053; 82607; 82746; 84443

== ENCOUNTER 2024-09-22 11:38 | Outpatient (REF) | payer MEDICARE, SELFPAY ==
--- OUTSIDE RECORDS SUMMARY | 2024-09-22 12:16 | XMS_ITS | Encounter Summary ---
Author Organization [facility] Address [address] [place] [address] Care Team Providers Care Restaurant Associate Name Role Phone No Pcp, Per Patient Primary Care Provider Nicanor paula Encounter Details Date Type Department Care Team (Late st Contact Info) Description 07/28/2023 Lab Requisition [facility] Anatomical Pathology Lab [address] [place] [id number] Chi Limon MD [address] [place] [address] [address] [place] [address] Secondary corneal edema, left eye Social History Tobacco Use Types Packs/Day Years Used Date Smoking Tobacco: Never Assessed Comments Unknown Sex and Gender Information Value Date Recorded Sex Assigned at Not on file Legal Sex Female 11:27 AM EDT Gender Identity Not on file Sexual Orientation Not on file documented as of this encounter Plan of Treatment Not on file documented as of this encounter Procedures Procedure Name Priority Date/Time Associated Diagnosis Comments TISSUE PATHOLOGY Routine 07/27/2023 9:00 AM EDT Secondary corneal edema, left eye documented in this encounter Results * Tissue Pathology (07/27/2023 9:00 AM EDT) Case Report [facility] Eye Pathology Case: [id number] Authorizing Provider: Chi Limon MD Collected: 07/27/2023 0900 Ordering Location: [facility] Received: 07/28/2023 1129 Anatomical Pathology Lab Pathologist: Susie Gil MD Specimen: Decements Membrane, Descemet's Membrane Left Eye 08/06/2023 11:30 AM EDT [facility] AN[facility] LAB Final Diagnosis A. 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 PAS stain was used in the interpretation of the specimen. 08/06/2023 11:30 AM EDT [facility] AN[facility] LAB at 1130 EDT Clinical Information Secondary corneal edema left eye 08/06/2023 11:30 AM EDT [facility] LAB Gross Description A. The specimen, received in formalin, labeled with the patient's name, Desorcy, Laura , date of , and additionally labeled, LEFT DMEK , consists of a minute, translucent soft tissue measuring 0.3 x 0.2 x less than 0.1 cm. The specimen is submitted in toto in cassette A1. Please note: the specimen is delicate; a biopsy filter bag is used. The tissue may not survive further processing. Grossed by BINA Christianson PA([facility])KENDY on 07/30/23 at 9:42 AM. 08/06/2023 11:30 AM EDT [facility] AN[facility] LAB Disclaimer The interpretation o f this case included the use of immunohistochemistry or special stains. These tests have not been cleared or approved by the U.S. Food and Drug Administration. The FDA has determined that such clearance or approval is not necessary. These tests are used for clinical purposes and should not be regarded as investigational or for research. This laboratory is certified to perform high complexity testing under the Clinical Laboratory Improvement Amendments of 1988. Controls for immunohistochemical, in situ hybridization and/or special stain studies used in the evaluation of this case show appropriate reactivity. 08/06/2023 11:30 AM EDT [facility] AN[facility] LAB Tissue Structure of Descemet's membrane / Unknown 07/27/2023 9:00 AM EDT 07/28/2023 11:29 AM EDT us Chi Limon MD LAB PATHOLOGY ORDERABLES Final Result [facility] AN[facility] LAB [address] [place] [address], documented in this encounter Visit Diagnoses Diagnosis Secondary corneal edema, left eye documented in this encounter Care Teams Restaurant Associate Relationship Specialty Start Date End Date No Pcp, Per Patient [place] PCP - General 07/28/23 documented as of this encounter
--- OUTSIDE RECORDS SUMMARY | 2024-09-22 12:16 | XMS_ITS | Clinical Summary ---
Author Organization [facility] Facility Address [address] [place] [address] Care Team Providers Care Archivist Name Role Phone Cleo Fierro MD Primary [...] Due Date Last Done Comments Pneumococcal Vaccine: 50+ Ye ars (1 of 1 - PCV) 1990 Influenza Vaccine (#1) 2024 Hepatitis B Vaccine Aged Out No longe r eligible based on patient's age to complete [place] [id number] Medicare [facility] [place] [address] Medicare [facility] Care Teams Archivist Relationship Specialty Start Date End Date Cleo Fierro MD [address] [place] [address] PCP - General Internal Medicine 04/10/22
[2024-09-22 13:20] LABS: MANUAL DIFF FLAG NO
[2024-09-22 13:32] LABS: Hematocrit 38.7 % (37.0-47.0); Hemoglobin 13.0 g/dl (12.0-16.0); Imm Gran Abs Auto 0.01 X10*3/uL (0.00-0.03); Imm Gran Pct Auto 0.2 % (0.0-0.4); Lymphocytes Absolute Auto 1.8 X10*3/uL (1.2-4.9); Mean Corpuscular HGB Conc 33.6 g/dl (31.0-35.0); Mean Corpuscular Hemoglobin 31.9 pg (27.0-33.0); Mean Corpuscular Volume 94.9 fL (80.0-98.0); NRBC Abs Auto 0.000 X10*3/uL (0.0-0.012); NRBC Pct Auto 0.0 /100WBC (0.0-0.2); Platelet Count 196 X10*3/uL (160-400); Red Blood Count 4.08 X10*6/uL (4.20-5.50); White Blood Count 4.9 X10*3/uL (4.8-10.8)
[2024-09-22 13:55] LABS: Alanine Aminotransferase 24 U/L (0-31); Albumin Level 4.1 g/dL (3.5-5.0); Alkaline Phosphatase 88 U/L (39-117); Anion Gap 12 (12-20); Aspartate Amino Transferase 26 U/L (5-31); Blood Urea Nitrogen 20 mg/dL (9-16); Calcium 9.1 mg/dL (8.4-10.2); Carbon Dioxide 26 mmol/L (22-29); Chloride 107 mmol/L (96-108); Cholesterol 141 mg/dL (<200); Estimated Glomerular Filt Rate > 60; HDL Cholesterol 44 mg/dL (>40); Potassium 3.3 mmol/L (3.3-5.1); Sodium 142 mmol/L (135-145); Total Protein 6.4 g/dL (6.5-8.0); Triglycerides 129 mg/dL (<150)
[2024-09-22 14:20] LABS: Thyroid Stimulating Hormone 1.20 uIU/mL (0.32-4.0)
== END 2024-09-22 11:39 | disposition home or self-care (01) ==
LOC: HO.HMGCLDS 11:38
PROVIDERS: PCP Internal Medicine; Visit Provider Internal Medicine
DX: I10 Essential (primary) hypertension (principal); E03.8 Other specified hypothyroidism; H81.11 Benign paroxysmal vertigo, right ear; N32.81 Overactive bladder; R53.83 Other fatigue
CPT/HCPCS: 36415; 80053; 80061; 84443; 85025; 87086; 87088; 87186